=== PATIENT | male | born 1950 | race Caucasian/White ===

== ENCOUNTER 2019-11-12 11:17 | Emergency (ER) | payer OTHER, MEDICARE, SELFPAY ==
[2019-11-12 11:24] VITALS: BP 139/69; PULSE 66; RESP 16; TEMP 36.5; O2SAT 98; BMI 27.8
[2019-11-12 11:29] VITALS: PULSE 65; O2SAT 96
[2019-11-12 11:30] VITALS: BP 128/69; PULSE 69; O2SAT 96
--- NOTE | 2019-11-12 11:34 | DI.RAD.S_ITS ---
PROCEDURE: XR RIBS LT MIN 3V W CXR1V INDICATIONS: fall pain TECHNIQUE: 2 views of the left ribs were acquired, along with a single view chest. COMPARISON: None. FINDINGS: Surgical changes and devices: None. Bones and chest wall: No fractures or dislocations. No suspicious bony lesions. Overlying soft tissues appear unremarkable. Lungs and pleura: No pleural effusions or pneumothorax. Lungs appear clear. Mediastinum: Mediastinal contours appear normal. Heart size is normal. IMPRESSION: Normal for age, source of current pain after trauma symptoms is not seen. Dictated by: Bandar Zuniga M.D. on 11/12/2019 at 12:13 Approved by: Bandar Zuniga M.D. on 11/12/2019 at 12:14
[2019-11-12 11:44] LABS: Add Manual Diff / Slide Review NO; Basophils Absolute Auto 100 /uL (0-100); Eosinophils Absolute Auto 200 /uL (0-450); Eosinophils Percent Auto 2.4 % (2-4); Hematocrit 40.1 % (41-53); Hemoglobin 13.7 g/dL (13.5-17.5); Lymphocytes Absolute Auto 2100 /uL (1100-4500); Lymphocytes Percent Auto 23.8 % (25-40); Mean Corpuscular HGB Conc 34.1 % (30-36); Mean Corpuscular Volume 90.9 fL (80-100); Monocytes Absolute Auto 400 /uL (0-900); Monocytes Percent Auto 4.7 % (3-14); Neutrophils Absolute Auto 6100 /uL (1500-7000); Neutrophils Percent Auto 68.1 % (50-75); Platelet Count 294 X10^3/uL (150-400); Red Blood Cell Count 4.41 X10^6/uL (4.5-5.9); Red Cell Distribution Width 13.8 % (11.6-14.8)
[2019-11-12 11:54] LABS: Alanine Aminotransferase 20 IU/L (<50); Albumin 4.3 g/dL (3.5-5.0); Albumin Globulin Ratio 1.5 (1.0-2.8); Alkaline Phosphatase 102 U/L (38-126); Aspartate Aminotransferase 24 IU/L (17-59); BUN Creatinine Ratio 19.2 (6-22); Bilirubin Total 0.8 mg/dL (0.2-1.3); Blood Urea Nitrogen 15 mg/dL (9-20); Calcium 9.4 mg/dL (8.4-10.2); Carbon Dioxide 23 mmol/L (22-32); Chloride 104 mmol/L (98-107); Creatine Kinase 95 U/L (55-170); Estimated Glomerular Filt Rate > 60.0 mL/min (>60); Globulin 2.9 g/dL (1.7-4.1); Glucose 163 mg/dL (80-110); HEMOLYSIS < 15 (0-50); Lipase 48 U/L (23-300); Potassium 4.4 mmol/L (3.4-5.1); Sodium 136 mmol/L (137-145); Total Protein 7.2 g/dL (6.3-8.2)
[2019-11-12 12:01] VITALS: PULSE 61; RESP 23; O2SAT 96
[2019-11-12 12:05] LABS: Troponin I < 0.012 ng/mL (0.01-0.034)
--- NOTE | 2019-11-12 12:10 | ED.CHESTPAIN ---
HPI - Chest Pain General Chief Complaint: Chest Pain Stated Complaint: Fell a week ago on chest Time Seen by Provider: 11/12/19 11:21 Source: patient Mode of arrival: Ambulatory Limitations: no limitations History of Present Illness HPI narrative: A 69-YEAR-OLD MALE WHO PRESENTS WITH LEFT-SIDED CHEST PAIN. He has a history of coronary artery disease however he tripped and fell on at [facility] last week. The left side of his chest hurts every time he breathes moves twist or presses on it. He says however this does feel little bit like his previous heart attack. He had an what sounds like and an STEMI in 2018 he denies having any stent and says they just monitored him in the hospital. He is more concerned because he feels like his ribs are not improving. He denies any dizziness or lightheadedness before he fell. He says he just tripped P complaint: chest pain Onset (ago): week(s) (1) Exacerbating factors: palpation and movement Related Data Home Medications Medication Instructions Recorded Confirmed HOMEOPATHIC SUBSTANCE (MILK 1 cap PO QDAY #0 04/13/11 THISTLE) folic acid 1 tabs PO QDAY #0 04/13/11 ibuprofen 800 mg PO Q8HP #0 04/13/11 lorazepam [Ativan] 1 mg PO Q8HP #0 04/13/11 albuterol sulfate [Proventil HFA] 1 puff INH PRN #0 08/14/11 telmisartan [Micardis] 40 mg PO QDAY #0 08/14/11 Allergies Allergy/AdvReac Type Severity Reaction Status Date / Time No Known Drug Allergies Allergy Verified 11/12/19 11:24 Review of Systems Review of Systems Narrative: GENERAL: Denies chills, fatigue, malaise, fever, sweats, travel HEENT: Denies sinus pain, ear pain, sore throat, difficulty swallowing, neck pain RESPIRATORY: Denies dyspnea, cough, wheezing, hemoptysis, sputum. CARDIOVASCULAR: See HPI GASTROINTESTINAL: Denies nausea, vomiting, abdominal pain, diarrhea, constipation, melena. : Denies dysuria, frequency, incontinence, hematuria, urinary retention, flank pain. MUSCULOSKELETAL: Denies weakness, joint pain, or bony pain SKIN: No rash, no erythema, no pruritus NEUROLOGIC: Denies weakness, dizziness, headache, numbness, change in speech, confusion PSYCHIATRIC: No concerning psychosocial issues. 12 point review of systems is negative except for those stated above and HPI Exam Initial Vital Signs Initial Vital Signs: Vital Signs Temperature 97.7 F 11/12/19 11:24 Pulse Rate 66 11/12/19 11:24 Respiratory Rate 16 11/12/19 11:24 Blood Pressure 139/69 11/12/19 11:24 Pulse Oximetry 98 11/12/19 11:24 GENERAL: Alert pleasant male and in no acute distress. HEENT: Head atraumatic,EOMI, pupils reactive, face symmetric, moist mucous membranes CARDIOVASCULAR: Regular rate and rhythm without murmurs, rubs or gallops. RESPIRATORY: Breath sounds equal bilaterally, no wheezes rales or rhonchi. Tender to touch left anterior ribs no contusion erythema no paradoxical movement ABDOMEN: Soft, nontender. Normoactive bowel sounds all 4 quadrants. No guarding or rebound. EXTREMITIES: Normal range of motion, no clubbing or edema. Neurovascularly intact NEUROLOGICAL: Alert and oriented x4.Normal gait and speech. Cranial nerves II through XII grossly intact. SKIN: Warm, dry, no laceration, no petechiae, no rashes or lesions. Course Orders Ordered: ED Orders 11/12/19 11:23 EKG-12 Lead Stat 11/12/19 11:34 XR ribs LT min 3V w CXR1V Stat 11/12/19 11:38 Complete Blood Count AUTO DIFF Stat Comprehensive Metabolic Panel Stat Lipase Stat Troponin & CK Cardiac Panel Stat Vital Signs Vital signs: Vital Signs - 8 hr 11/12/19 11:24 11/12/19 11:29 11/12/19 11:30 Temperature 97.7 F Pulse Rate 66 65 69 Respiratory Rate 16 Blood Pressure 139/69 128/69 Pulse Oximetry 98 96 96 11/12/19 12:01 11/12/19 12:30 11/12/19 12:37 Temperature Pulse Rate 61 66 Respiratory Rate 23 18 Blood Pressure 116/65 Pulse Oximetry 96 97 MDM - Chest Pain Lab Data Attestation: I reviewed the patient's lab results. Result diagrams: 11/12/19 11:38 11/12/19 11:38 Labs: Lab Results 11/12/19 11/12/19 Range/Units 11:38 11:38 WBC 9.0 (4.5-11.0) X10^3/uL RBC 4.41 L (4.5-5.9) X10^6/uL Hgb 13.7 (13.5-17.5) g/dL Hct 40.1 L (41-53) % MCV 90.9 (80-100) fL MCH 31.0 (26-34) PG MCHC 34.1 (30-36) % RDW 13.8 (11.6-14.8) % Plt Count 294 (150-400) X10^3/uL Neut % (Auto) 68.1 (50-75) % Lymph % (Auto) 23.8 L (25-40) % Garfield % (Auto) 4.7 (3-14) % Eos % (Auto) 2.4 (2-4) % Baso % (Auto) 1.0 (0-2) % Neut # (Auto) 6100 (0755-4367) /uL Lymph # (Auto) 2100 (1074-9059) /uL Garfield # (Auto) 400 (0-900) /uL Eos # (Auto) 200 (0-450) /uL Baso # (Auto) 100 (0-100) /uL Sodium 136 L (137-145) mmol/L Potassium 4.4 (3.4-5.1) mmol/L Chloride 104 (98-107) mmol/L Carbon Dioxide 23 (22-32) mmol/L BUN 15 (9-20) mg/dL Creatinine 0.78 (0.66-1.25) mg/dL Estimated GFR > 60.0 (>60) mL/min BUN/Creatinine Ratio 19.2 (6-22) Glucose 163 H (80-110) mg/dL Calcium 9.4 (8.4-10.2) mg/dL Total Bilirubin 0.8 (0.2-1.3) mg/dL AST 24 (17-59) IU/L ALT 20 (<50) IU/L Alkaline Phosphatase 102 (38-126) U/L Total Creatine Kinase 95 (55-170) U/L CK-MB (CK-2) TNP CK-MB (CK-2) Rel Index TNP Troponin I < 0.012 (0.01-0.034) ng/mL Total Protein 7.2 (6.3-8.2) g/dL Albumin 4.3 (3.5-5.0) g/dL Globulin 2.9 (1.7-4.1) g/dL Albumin/Globulin Ratio 1.5 (1.0-2.8) Lipase 48 (23-300) U/L Imaging Data Chest x-ray: Radiologist's Impression: PROCEDURE: XR RIBS LT MIN 3V W CXR1V INDICATIONS: fall pain TECHNIQUE: 2 views of the left ribs were acquired, along with a single view chest. COMPARISON: None. FINDINGS: Surgical changes and devices: None. Bones and chest wall: No fractures or dislocations. No suspicious bony lesions. Overlying soft tissues appear unremarkable. Lungs and pleura: No pleural effusions or pneumothorax. Lungs appear clear. Mediastinum: Mediastinal contours appear normal. Heart size is normal. IMPRESSION: Normal for age, source of current pain after trauma symptoms is not seen. Dictated by: Bandar Zuniga M.D. on 11/12/2019 at 12:13 ECG Data Attestation: I personally reviewed and interpreted this ECG as follows: Interpretation: Normal sinus rhythm rate 65 p.r. interval 168 QRS [address] changes no Q-waves T-wave inversion noted in lead 3 actually similar to prior EKG in 2012 MDM Narrative Medical decision making narrative: Patient's blood work is overall reassuring. X-ray does not show any fractured ribs however I suspect that he likely has a rib contusion is or slight fracture that is not seen. At this time recommend pain control only. The patient is offered stronger pain medication decide Tylenol however he declines at this time. Discharge Plan Departure Patient Disposition: Home Clinical Impression: Contusion of rib on left side Qualifiers: Encounter type: initial encounter Qualified Code(s): S20.212A - Contusion of left front wall of thorax, initial encounter Discharge Date/Time: 11/12/19 12:46 Instructions: DI for Rib Contusion Activity Restrictions/Additional Instructions: *You have been diagnosed with rib contusion *What to do: No broken bone or fractures identified on her x-ray. However he likely have a bruise. This should start to get better in the next week. *Continue to take medications as directed Tylenol 650 mg every 4-6 hours if needed for elmt-ga-hbgshbii pain *Follow up with your primary care provider in 2-3 days *Return to ER if you should have increasing chest pain shortness of breath or any new, worsening or concerning symptoms Prescriptions: No Action folic acid 0.8 MG tablet 1 tabs PO QDAY Qty: 0 RF: 0 ibuprofen 800 MG tablet 800 mg PO Q8HP Qty: 0 RF: 0 HOMEOPATHIC SUBSTANCE (MILK THISTLE) 1 cap PO QDAY Qty: 0 RF: 0 lorazepam [Ativan] 1 MG tablet 1 mg PO Q8HP Qty: 0 RF: 0 telmisartan [Micardis] 40 MG tablet 40 mg PO QDAY Qty: 0 RF: 0 albuterol sulfate [Proventil HFA] 90 MCG/PUFF HFA aerosol inhaler 1 puff INH PRN Qty: 0 RF: 0
[2019-11-12 12:30] VITALS: PULSE 66; RESP 18; O2SAT 97
[2019-11-12 12:37] VITALS: BP 116/65
== END 2019-11-12 12:46 | disposition home or self-care (01) ==
PROVIDERS: Emergency Provider Emergency Medicine
DX: S20.212A Contusion of left front wall of thorax, initial encounter (principal); R07.9 Chest pain, unspecified; W19.XXXA Unspecified fall, initial encounter
CPT/HCPCS: 36415; 71101; 80053; 82550; 83690; 84484; 85025; 93005; 99284

== ENCOUNTER 2021-09-17 10:11 | Emergency (ER) | payer OTHER, SELFPAY ==
[2021-09-17 10:44] VITALS: BP 144/82; PULSE 74; RESP 18; TEMP 36.4; O2SAT 93; O2SAT 94; BMI 29.2
[2021-09-17 11:00] VITALS: BP 130/77; PULSE 68; O2SAT 94
--- NOTE | 2021-09-17 11:03 | ED.SKABFB ---
HPI - Skin/Abscess/Foreign Bdy General Chief complaint: Skin/Abscess/Foreign Body Stated complaint: Infection in toe Time Seen by Provider: 09/17/21 11:01 Source: patient Mode of arrival: Family Vehicle Limitations: no limitations History of Present Illness HPI narrative: Patient is a 71-year-old male. Does have a history of neuropathy. He states that this is not new. He was told that he had neuropathy because of his drinking. He has not drank in 3 years. He is here for evaluation of a red 2nd toe when his right foot. States he recently did hit his toe however the redness just started. He is minimal discomfort but this is most likely because of his neuropathy. He is going out of town for 10 days and wanted it evaluated prior to this. Related Data Home Medications Medication Instructions Recorded Confirmed HOMEOPATHIC SUBSTANCE (MILK 1 cap PO QDAY ##0 04/13/11 THISTLE) folic acid 800 mcg tablet 1 tabs PO QDAY ##0 04/13/11 ibuprofen 800 mg tablet 800 mg PO Q8HP ##0 04/13/11 lorazepam 1 mg tablet (Ativan) 1 mg PO Q8HP ##0 04/13/11 albuterol sulfate 90 mcg/actuation 1 puff INH PRN ##0 08/14/11 aerosol inhaler (Proventil HFA) telmisartan 40 mg tablet (Micardis) 40 mg PO QDAY ##0 08/14/11 Allergies Allergy/AdvReac Type Severity Reaction Status Date / Time No Known Drug Allergies Allergy Verified 09/17/21 10:42 Review of Systems Constitutional Constitutional: Denies fever(s) Musculoskeletal Musculoskeletal: Reports system reviewed and no additional complaints, except as documented Integumentary/Breasts Skin/Breast: Reports system reviewed and no additional complaints, except as documented Patient History Medical History Neuropathy Social History Smoking Status: Former smoker Smoking Status: Former smoker tobacco type: cigarettes alcohol intake frequency: 0-2 drinks per day Substance Use Type: does not use Exam Initial Vital Signs Initial Vital Signs: Vital Signs Temperature 97.5 F L 09/17/21 10:44 Pulse Rate 74 09/17/21 10:44 Respiratory Rate 18 09/17/21 10:44 Blood Pressure 144/82 H 09/17/21 10:44 Pulse Oximetry 94 09/17/21 10:44 Oxygen Delivery Method 09/17/21 10:44 Cardio Pulses: dorsalis pedis present on the right Skin Other: 2nd toe is red from the base of the nail up to the PIP joint. There is no fluctuance. Patient does have thick toenails on both of his feet. Consistent with fungal infections. The toenail on the 2nd toe where the redness is located on the lateral aspect does appear to be ingrowing. Extrem Other: Except for toenails bilateral feet are unremarkable. Course Vital Signs Vital signs: Vital Signs - 8 hr 09/17/21 10:44 Temperature 97.5 F L Pulse Rate 74 Respiratory Rate 18 Blood Pressure 144/82 H Pulse Oximetry 94 Oxygen Delivery Method Room Air MDM - Skin/Abscess/Foreign Bdy MDM Narrative Medical decision making narrative: Patient had minimal discomfort. His toenails were trimmed. The toenail on the 2nd toe was completely removed and was consistent with a ingrowing toenail. I suspect that the redness will improve now that this has been removed. He was informed that he needs to keep a close eye on this because of his neuropathy. He was given return precautions. He expressed understanding and agreement. Discharge Plan Departure Patient Disposition: Home Clinical Impression: Ingrowing toenail of right foot Instructions: DI for Ingrown Toenail Removal Activity Restrictions/Additional Instructions: The redness on the 2nd toe should improve now that the toenail has been removed. You do need to keep an eye on this because of your neuropathy and if symptoms worsen you do need to be re-evaluated. You would benefit from seeing a flight paramedic. Return to the emergency department for any new or worsening symptoms. Prescriptions: No Action folic acid 0.8 MG tablet 1 tabs PO QDAY Qty: 0 ibuprofen 800 MG tablet 800 mg PO Q8HP Qty: 0 HOMEOPATHIC SUBSTANCE (MILK THISTLE) 1 cap PO QDAY Qty: 0 lorazepam [Ativan] 1 MG tablet 1 mg PO Q8HP Qty: 0 telmisartan [Micardis] 40 MG tablet 40 mg PO QDAY Qty: 0 albuterol sulfate [Proventil HFA] 90 MCG/PUFF HFA aerosol inhaler 1 puff INH PRN Qty: 0
--- NOTE | 2021-09-17 11:19 | PC.NURSE ---
Non-Adhering gauze, gauze, and tape applied to toe. Education provided for care. Pt verbalizes understanding.
== END 2021-09-17 11:20 | disposition home or self-care (01) ==
PROVIDERS: Emergency Provider Emergency Medicine
DX: L60.0 Ingrowing nail (principal)
CPT/HCPCS: 99281

== ENCOUNTER → 2021-10-09 08:52 | Outpatient (CLI) | payer OTHER, SELFPAY ==
--- NOTE | 2021-10-09 | DI.RAD.S_ITS ---
PROCEDURE: FL BARIUM SWALLOW W SPEECH INDICATIONS: DYSPHAGIA COMPARISON: None. TECHNIQUE: Examination was conducted in conjunction with speech pathology per standard protocol. In the lateral projection, filming was performed of the patient swallowing. AP projection filming may also be performed with patient swallowing. COMPARISON: FINDINGS: Function: The oral preparatory phase appears normal, with proper containment. The subsequent oral propulsive phase and esophageal phase of swallowing also appear normal with all proffered substances. Flash laryngeal penetration observed with thin barium. No laryngotracheal aspiration. Intermittent absence of epiglottic inversion demonstrated. Mild vallecular residue. Morphology: No cricopharyngeal bar is identified. No cervical esophageal webs. No Zenker's diverticulum. No strictures. IMPRESSION: 1. No tracheal aspiration visualized. 2. Please see the speech pathologist report for additional details. Dictated by: Matthew Monterroso M.D. on 10/09/2021 at 10:33 Approved by: Matthew Monterroso M.D. on 10/09/2021 at 10:38
--- NOTE | 2021-10-09 17:27 | ST.SWALLOW ---
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 Eleazar Ahumada Reason for Referral Dysphagia Setting Setting Outpatient Care Patient Information Identification Type Name,ID Card Patient History The pt is a 71-yr-old male with primary complaint of a chronic cough present for 3-4 yrs. He also reported occasional coughing with oral intake with both solids and liquids. No difficulty swallowing 2 pills at a time. The pt has undergone upper endoscopy and laryngoscopy with no significant findings. The pt has poor fitting upper dentures that interfere with his ability to masticate advanced textures. He is working with a denturist for better fitting. He avoids these advanced textures or must cut them into very small pieces in order to chew. There are no other foods/liquids that he avoids d/t dysphagia symptoms. The pt is being followed by a Neurologist every 6 mos d/t some concern of possible Parkinson's disease. PMHx is significant for alcoholism with frequent falls , the last of which occurred in 2019 during which the pt broke his hip and hit his head . He was hospitalized for more than a month. During hospitalization, he was on a ventilator for ~1 mo, per pt report, and underwent hip surgery requiring placement of pins. He reported, I had to learn to walk and talk again and continues currently with PT. He reported increased memory difficulty, particularly finding words, since the fall. This concerns him because his father from complications of Alzheimer's disease. The pt has had no alcohol since that 2019 fall. 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 He has a very distant history of smoking (1981), quitting after he developed asthma. Subjective Observations The pt arrived on time, ambulating with cane. Case history was collected and MBS procedure explained to the pt. The pt reported having a hyperactive gag reflex and was provided an emesis bag. He was agreeable to proceeding. Throughout the study, the pt exhibited moderately halting speech, though he was 100% intelligible, and expressive and receptive language skills were WNL for the demands of the study. Patient Positioning Position View Lat-A/P Imaging Lateral View Textures Administered Trials Presented Thin Liquid via Spoon,Thin Liquid via Cup,Bastian Liquid via Spoon,Bastian Liquid via Cup,Honey Liquid via Spoon, Dysphagia Blenderized Textures ,Regular Textures Oral Phase Source: MBSIMP (TM) (C) Bolus Specific Scoring Grid Lip Closure No Impairment (WNL) Tongue Control During Bolus Hold Mild Impairment Bolus Prep/Mastication Mild Impairment Bolus Transport/Lingual Motion Mild Impairment A/P Lingual Propulsion Delay Yes: Lingual rocking with thick barium paste. Otherwise WNL Oral Residue Mild Impairment Residue Clearing WFL Nasal Regurgitation No Additional Oral Phase Observations Oral Peripheral Exam: Features are symmetrical. Generalized weakness and reduced tone of facial musculature was observed both at rest and during oral motor movements. Pt exhibited mildly reduced buccal coordination and anterior escape of air when shifting air laterally between cheeks. Lingual protrusion was limited in ROM. No tremor or lingual fasciculations were observed. Upper dentures were secure during OPE and oral trials but did displace when the pt experienced gagging at the end of the study. Lower dentition consists of natural molars bilaterally with a bridge between. This appears to be secure. Oral Prep and Swallow Phases: Adequate bolus control during liquid hold and swallows of liquids. Moderate lingual rocking and oral residue was observed with barium paste and paste on cookie, requiring several attempts to initiate the swallow and multiple swallows to clear oral residue . Following the study, ~5 min after trials had been completed, the pt exhibited gagging and dry heave x1, reportedly from hyperactive gag reflex. Suspect gag reflex may have influenced swallow initiation of trials including barium paste. Mastication of cookie primarily consisted of anterior munching, likely secondary to ill-fitting denture. Pharyngeal Phase Source: MBSIMP (TM) (C) Bolus Specific Scoring Grid Delayed Initiation of Pharyngeal Swallow Yes: To vallecula in all trials but one, to posterior epiglottis Soft Palate Elevation No Impairment (WNL) Tongue Base Strength/Range of Motion Mild Impairment Residue Along the Tongue Base Yes: Trace to mild Clearance of Residue Along Tongue Base WFL Laryngeal Elevation WFL Anterior Hyoid Movement Mild Impairment Epiglottic Range of Motion Mild Impairment Vallecular Residue Yes Clearance of Vallecular Residue Moderate Impairment Laryngeal Vestibular Closure Minimal Impairment Pharyngeal Stripping Wave Moderate Impairment Pharyngeal Contraction No Impairment (WNL) Posterior Pharyngeal Wall Residue No Upper Esophageal Sphincter Opening Mild Impairment Residue in the Pyriform Sinuses Yes: Trace Clearance of Residue in the Pyriform No Impairment (WNL) Sinuses Esophageal Clearance Upright Position No Impairment (WNL) Pharyngoesophageal Backflow Observed No Additional Pharyngeal Phase Observations Swallow trigger was consistently delayed to the level of the vallecula, with one episode of delay to the posterior of the epiglottis. Flash mild penetration of the laryngeal vestibule (PAS 2) was noted x2 with thin liquids . No aspiration was observed. Epiglottic inversion was inconsistent with full inversion during swallows of contrast substance but frequent incomplete inversion during dry swallows to clear residue. During the latter, the epiglottis made contact with the pharyngeal wall. This inconsistency, in addition to moderately reduced tongue base strength and pharyngeal constriction, contributed to vallecular residue with all trials, which did not fully clear with subsequent dry swallows. The extent and duration of UES opening was mildly reduced but did not contribute to pharyngeal residue; little to no residue was noted in the pyriform sinuses. A/P View Textures Administered Trials Presented Bastian Liquid via Spoon, Dysphagia Blenderized Textures ,Barium Tablet A/P View Observations Pharyngeal Contraction No Impairment (WNL) Esophageal Function No Impairment (WNL) Esophageal Clearance Upright Position No Impairment (WNL) Additional Observations Liquid and paste trials passed to the stomach without delay. Barium tablet required two liquid swallows to clear the esophagus. Clinical Impressions Dysphagia Type Mild Oropharyngeal Dysphagia Findings The pt presents with mild oropharyngeal dysphagia. Oral dysphagia is secondary to mildly reduced lingual and buccal strength and contributed by hyperactive gag reflex and poor fitting dentures. Trials of barium paste posed the greatest challenge and required multiple attempts at a/p transport, likely due to the very thick texture and possible gag reflex. Pharyngeal dysphagia is also secondary to muscular weakness resulting in inconsistent epiglottic inversion particularly with minimal bolus bulk, occasional incomplete closure of the laryngeal vestibule resulting in flash penetration of thin liquids, and reduced pharygeal stripping wave. Consistent vallecular residue was observed, and swallow trigger was also consistently delayed to the level of the vallecula. No coughing was elicited throughout the study. One episode of dry heave following completion of the study occurred, which the pt attributed to a hyperactive gag reflex. No obvious cause of the pt's chronic cough was determined. Question if extended time on a ventilator during the 2019 hospital stay may be a contributor, as this appears to be consistent timing with the onset of his cough. Outpatient speech therapy is recommended to address oropharyngeal dysphagia, provide education and training in cough alternatives that may reduce a cough that may be habituated, and evaluate the pt's expressive and cognitive communication skills secondary to past head injury with treatment as indicated. The pt was provided these recommendations and expressed agreement. Rehabilitation Potential Good Patient Appropriate for Therapy Yes Recommendations Diet Liquids Order Thin Diet Order Mechanical Soft Medication Recommendation As Tolerated Aspiration Precautions Recommended Precautions Upright at 90 Degrees,Small Bites/Sips,Effortful Swallow, Double Swallow Additional Precautions Minimize distractions Treatment Plan Therapy Recommendations Outpatient Speech Therapy Compensatory Strategies Recommendations Sitting Upright (90 deg), Double Swallow,Small Bites and Sips Short Term Goals 1. The pt will perform exercises to increase strength of swallow musculature to improve swallow efficiency and safety. Tool Machine Setup Operator Goals 1. The pt will tolerate least restrictive diet to meet his nutrition and hydration needs. Additional Recommendations/Comments Outpatient Speech Therapy for evaluation of expressive & cognitive communication skills.
== END ==
DX: R13.10 Dysphagia, unspecified (principal)
CPT/HCPCS: 74230; 92611

== ENCOUNTER 2021-11-28 09:30 | Outpatient (RCR) | payer OTHER, SELFPAY ==
--- NOTE | 2021-11-07 13:18 | ST.OPIE ---
Visit Care Team Role Provider Type Pavan Cid PA-C Attending Provider Non-Staff Family Provider Primary Care Provider Referring Provider Specialty: Medical Address: [address] [place] [address], [place], [address] Email: Speech-Language Pathology Initial Evaluation SLAT TWISTER Adult Cognitive Linguistic Eval Start: 11/07/21 12:51 Freq: Status: Active Protocol: Document 11/07/21 12:52 JAYLON (Rec: 11/07/21 13:18 ZS [id number]) Adult Cognitive Linguistic Evaluation Session Time Visit Start Time 11:15 Visit Stop Time 12:00 Total Visit Minutes 45 Visit Information Visit Number Initial Evaluation Plan of Care Dates 11/07/21 - 02/14/22 Insurance Information [facility] Referral Referring Provider Dr. Cid Reason for Referral Speech concerns Setting Assessment Location Outpatient Care Visit Type Note Type Initial evaluation Next Note Type Next Note Type Treatment Note Patient Information Identification Type Name Patient History Per history obtained at Modified Barium Swallow Study on 10/09/21: The pt is a 71-yr -old male with primary complaint of a chronic cough present for 3-4 years. He also reported occasional coughing with oral intake with both solids and liquids. No difficulty swallowing 2 pills at a time. The pt has undergone upper endoscopy and laryngoscopy with no significant findings. The pt has poor fitting upper dentures that interfere with his ability to masticate advanced textures. He is working with a denturist for better fitting. He avoids these advanced textures or must cut them into very small pieces in order to chew. there are no other foods/liquids that he avoids d/t dysphagia symptoms. The pt is being followed by a neurologist every 6 months d/t some concern of possible Parkinson' s disease/ PMHx is significant for alcoholism with frequent falls, the last of which occurred in 2019 during which the pt broke his hip and hit his head. He was hospitalized for more than a month. During hospitalization, he was on a ventilator for ~1 month, per pt report, and underwent hip surgery requiring placement of pins. He reported I had to learn to walk and talk again and continues currently with PT. He reported increased memory difficulty, particularly finding words, since the fall. This concerns him because his father from complications of Alzheimer's disease. The pt has had no alcohol since that 2019 fall. 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 He has a very distant history of smoking (1981), quitting after he developed asthma. Language(s) Spoken in the Home Czech Previous Therapy History of Therapy Current PT for back and hip. Previous speech therapy for about 2 months following fall in 2019. Subjective Patient Report Today, pt reported no concerns with memory or cognitive skills, stating the only thing he has difficulty remembering is words that he is trying to say. He stated the word finding difficulties have worsened over the past year. Pt has a neurology appointment next month and stated he will talk to neurologist about worsening symptoms and concerns for dementia. Pt stated he has new upper dentures, but it is still difficult to chew meat. He stated he has had the new dentures for about 1 week and continues to cut meats and other [id number] foods into small bites. Pt added he had a small heart attack in 2018, about 1 year prior to the major fall in 2019. Pt stated he received speech therapy services during his hospitalization, while he was in an inpatient rehab facility , and through home health for about 2 months following 2019 fall. Pt reported word finding difficulties were present and targeted with this therapy and they have worsened since discharge. Pt indicated concern for stuttering on intake form and stated he has had a lifelong stutter. This SLAT TWISTER observed prolongations and repetitions with no secondary behaviors. Pt stated he currently uses pointing, describing, and thinking of properties to help when he is having difficulty coming up with words. Mental Status Alert,Responsive,Cooperative Assessment Oral Motor Examination Completed No Findings/Results Findings Pt identified 6/6 objects given a picture representation , though presented with halted speech, likely due to word finding difficulties and stuttering. Pt exhibited prolongations and part-word repetitions with no secondary behaviors and reported stuttering has been lifelong. Discussed strategies for word finding, which pt reported he remembers from previous speech therapy provider. Pt stated he currently points to objects , describe objects, and think of properties to minimize word finding difficulties. Discussed use of synonyms and additional strategy to try. As pt has used several of these strategies in the past, therapy is recommended to reinforce current strategies, add additional strategies, and practice use of strategies to strengthen communication skills for the purposes of communicating wants and needs, especially in emergency situations. Plan of Care Speech-Language Treatment Yes Frequency 1x per week Duration 45 minutes Patient/Caregiver Education Described results of evaluation,Patient expressed understanding of evaluation, Patient expressed agreement with goals and treatment plans ,Patient expressed understanding of safety precautions,Patient expressed understanding of feeding recommendations,Patient requires further education/ training Short Term Goals 1. The pt will perform exercises to increase strength of swallow musculature to improve swallow efficiency and safety. 2. The pt will identify 1-3 synonyms for a given word independently during a structured activity. 3. The pt will independently utilize 1-2 strategies when experiencing word finding difficulty during conversation . Senior Living Goals 1. The pt will independently utilize strategies (e.g., using synonyms, describing objects, thinking of properties, etc.) to reduce impact of word finding difficulties on communication. 2. The pt will tolerate least restrictive diet to meet his nutrition and hydration needs.
--- NOTE | 2021-11-07 13:18 | ST.OPPOC ---
Physical, Occupational & Speech Therapy At [facility] Visit Care Team Role Provider Type Pavan Cid PA-C Attending Provider Non-Staff Family Provider Primary Care Provider Referring Provider Address: [address] [place] [address], [id number] Speech Pathology Plan of Care Plan of Care Dates 11/07/21 - 02/14/[address] Cid Patient History Per history obtained at Modified Barium Swallow Study on 10/09/21: The pt is a 71-yr-old male with primary complaint of a chronic cough present for 3-4 years. He also reported occasional coughing with oral intake with both solids and liquids. No difficulty swallowing 2 pills at a time. The pt has undergone upper endoscopy and laryngoscopy with no significant findings. The pt has poor fitting upper dentures that interfere with his ability to masticate advanced textures. He is working with a denturist for better fitting. He avoids these advanced textures or must cut them into very small pieces in order to chew. there are no other foods/liquids that he avoids d/t dysphagia symptoms. The pt is being followed by a neurologist every 6 months d/t some concern of possible Parkinson's disease/ PMHx is significant for alcoholism with frequent falls, the last of which occurred in 2019 during which the pt broke his hip and hit his head. He was hospitalized for more than a month. During hospitalization, he was on a ventilator for ~1 month, per pt report, and underwent hip surgery requiring placement of pins. He reported I had to learn to walk and talk again and continues currently with PT. He reported increased memory difficulty, particularly finding words, since the fall. This concerns him because his father from complications of Alzheimer's disease. The pt has had no alcohol since that 2019 fall. 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 He has a very distant history of smoking (1981), quitting after he developed asthma. Short Term Goals 1. The pt will perform exercises to increase strength of swallow musculature to improve swallow efficiency and safety. 2. The pt will identify 1-3 synonyms for a given word independently during a structured activity . 3. The pt will independently utilize 1-2 strategies when experiencing word finding difficulty during conversation. Nursing Home Goals 1. The pt will independently utilize strategies (e.g., using synonyms, describing objects, thinking of properties, etc.) to reduce impact of word finding difficulties on communication. 2. The pt will tolerate least restrictive diet to meet his nutrition and hydration needs. Comment: Electronically Signed by: LORRAINE Montaño 11/07/21 [id number] If you are in agreement with this Plan of Care, please return a signed and dated copy. I have reviewed this Plan of Care and certify that the skilled therapy services above are required to meet the patient?s needs. Physician Signature Date Printed Name and Credentials Clinical Instructor Signature Printed Name and Credentials
--- NOTE | 2021-11-17 15:21 | ST.OPTN ---
Visit Care Team Role Provider Type Pavan Cid PA-C Attending Provider Non-Staff Family Provider Primary Care Provider Referring Provider Address: [address] [place] [address], [place], [address] SAW MAKER Treatment Note SAW MAKER Treatment Note Start: 11/17/21 15:12 Freq: Status: Active Protocol: Document 11/17/21 15:12 ZS (Rec: 11/17/21 15:21 ZS [id number]) Speech Pathology Treatment Note Session Time Visit Start Time 14:25 Visit Stop Time 15:10 Total Visit Minutes 45 Visit Information Visit Number 1 Plan of Care Dates 11/07/21 - 02/14/22 Insurance Information [facility] Setting Treatment Setting Outpatient Care Visit Type Note Type Treatment Note Next Note Type Next Note Type Treatment Note General Information Patient History Per history obtained at Modified Barium Swallow Study on 10/09/21: The pt is a 71-yr -old male with primary complaint of a chronic cough present for 3-4 years. He also reported occasional coughing with oral intake with both solids and liquids. No difficulty swallowing 2 pills at a time. The pt has undergone upper endoscopy and laryngoscopy with no significant findings. The pt has poor fitting upper dentures that interfere with his ability to masticate advanced textures. He is working with a denturist for better fitting. He avoids these advanced textures or must cut them into very small pieces in order to chew. There are no other foods/liquids that he avoids d/t dysphagia symptoms. The pt is being followed by a neurologist every 6 months d/t some concern of possible Parkinson' s disease/ PMHx is significant for alcoholism with frequent falls, the last of which occurred in 2019 during which the pt broke his hip and hit his head. He was hospitalized for more than a month. During hospitalization, he was on a ventilator for ~1 month, per pt report, and underwent hip surgery requiring placement of pins. He reported I had to learn to walk and talk again and continues currently with PT. He reported increased memory difficulty, particularly finding words, since the fall. This concerns him because his father from complications of Alzheimer's disease. The pt has had no alcohol since that 2019 fall. 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 He has a very distant history of smoking (1981), quitting after he developed asthma. At initial evaluation, pt reported no concerns with memory or cognitive skills, stating the only thing he has difficulty remembering is words that he is trying to say . He stated the word finding difficulties have worsened over the past year. Pt has a neurology appointment next month and stated he will talk to neurologist about worsening symptoms and concerns for dementia. Pt stated he has new upper dentures, but it is still difficult to chew meat. He stated he has had the new dentures for about 1 week and continues to cut meats and other [id number] foods into small bites. Pt added he had a small heart attack in 2018, about 1 year prior to the major fall in 2019. Pt stated he received speech therapy services during his hospitalization, while he was in an inpatient rehab facility , and through home health for about 2 months following 2019 fall. Pt reported word finding difficulties were present and targeted with this therapy and they have worsened since discharge. Pt indicated concern for stuttering on intake form and stated he has had a lifelong stutter. This SAW MAKER observed prolongations and repetitions with no secondary behaviors. Pt stated he currently uses pointing, describing, and thinking of properties to help when he is having difficulty coming up with words. Subjective Identification Type Name Identification Reconciled With Medical Record Observations/Patient Presentation Fidencio arrived early and agreed to participate in all session activities. He reported continued difficulty with word finding, repeating several of the points from the initial evaluation. Fidencio also stated he had not heard about the results of the MBS completed on 10/09/21, despite going over results from this assessment at the initial evaluation on . Chief Complaint(s) Language Objective Short Term Goals 1. The pt will perform exercises to increase strength of swallow musculature to improve swallow efficiency and safety. 2. The pt will identify 1-3 synonyms for a given word independently during a structured activity. 3. The pt will independently utilize 1-2 strategies when experiencing word finding difficulty during conversation . Senior It Engineer Goals 1. The pt will independently utilize strategies (e.g., using synonyms, describing objects, thinking of properties, etc.) to reduce impact of word finding difficulties on communication. 2. The pt will tolerate least restrictive diet to meet his nutrition and hydration needs. Treatment Activities Reviewed results of MBS from . Discussed word finding strategies and progress with these so far. Practiced word finding with proverbs, similes, and identifying synonyms given a word. Discussed naming items in a category and practice describing items in daily life . Assessment Assessment of Improvement Pt did not appear to recall discussing results of MBS at previous session. Difficulty understanding activity to name items in a given category as pt continued to talk about how he uses a grocery list when he goes to the store. Pt stated he currently uses all of the strategies discussed, though added he liked the synonyms exercise. He agreed to practice identifying synonyms for a given word at home and worksheets were provided. Plan Amount of Therapy Recommended 6 Months Frequency of Treatment Once a Week Length of Session 45 Minutes Therapeutic Contents Expressive Language Training, Home Exercise Program Provided Patient/Caregiver Instruction Home Exercise Program,Plan of Care,Questions/Concerns Therapy Recommendations Continue with Current Program
--- NOTE | 2021-11-23 12:16 | ST.OPTN ---
Visit Care Team Role Provider Type Pavan Cid PA-C Attending Provider Non-Staff Family Provider Primary Care Provider Referring Provider Address: [address] [place] [address], [place], [address] SHEET METAL APPRENTICE Treatment Note SHEET METAL APPRENTICE Treatment Note Start: 11/17/21 15:12 Freq: Status: Active Protocol: Document 11/23/21 12:10 JAYLON (Rec: 11/23/21 12:16 JAYLON [id number]) Speech Pathology Treatment Note Session Time Visit Start Time 11:30 Visit Stop Time 12:10 Total Visit Minutes 40 Visit Information Visit Number 2 Plan of Care Dates 11/07/21 - 02/14/22 Insurance Information [facility] Setting Treatment Setting Outpatient Care Visit Type Note Type Treatment Note Next Note Type Next Note Type Treatment Note General Information Patient History Per history obtained at Modified Barium Swallow Study on 10/09/21: The pt is a 71-yr -old male with primary complaint of a chronic cough present for 3-4 years. He also reported occasional coughing with oral intake with both solids and liquids. No difficulty swallowing 2 pills at a time. The pt has undergone upper endoscopy and laryngoscopy with no significant findings. The pt has poor fitting upper dentures that interfere with his ability to masticate advanced textures. He is working with a denturist for better fitting. He avoids these advanced textures or must cut them into very small pieces in order to chew. There are no other foods/liquids that he avoids d/t dysphagia symptoms. The pt is being followed by a neurologist every 6 months d/t some concern of possible Parkinson' s disease/ PMHx is significant for alcoholism with frequent falls, the last of which occurred in 2019 during which the pt broke his hip and hit his head. He was hospitalized for more than a month. During hospitalization, he was on a ventilator for ~1 month, per pt report, and underwent hip surgery requiring placement of pins. He reported I had to learn to walk and talk again and continues currently with PT. He reported increased memory difficulty, particularly finding words, since the fall. This concerns him because his father from complications of Alzheimer's disease. The pt has had no alcohol since that 2019 fall. 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 He has a very distant history of smoking (1981), quitting after he developed asthma. At initial evaluation, pt reported no concerns with memory or cognitive skills, stating the only thing he has difficulty remembering is words that he is trying to say . He stated the word finding difficulties have worsened over the past year. Pt has a neurology appointment next month and stated he will talk to neurologist about worsening symptoms and concerns for dementia. Pt stated he has new upper dentures, but it is still difficult to chew meat. He stated he has had the new dentures for about 1 week and continues to cut meats and other [id number] foods into small bites. Pt added he had a small heart attack in 2018, about 1 year prior to the major fall in 2019. Pt stated he received speech therapy services during his hospitalization, while he was in an inpatient rehab facility , and through home health for about 2 months following 2019 fall. Pt reported word finding difficulties were present and targeted with this therapy and they have worsened since discharge. Pt indicated concern for stuttering on intake form and stated he has had a lifelong stutter. This SHEET METAL APPRENTICE observed prolongations and repetitions with no secondary behaviors. Pt stated he currently uses pointing, describing, and thinking of properties to help when he is having difficulty coming up with words. Subjective Identification Type Name Identification Reconciled With Medical Record Observations/Patient Presentation Fidencio arrived on time and agreed to participate in all session activities. He reported significant improvement with word finding, stating he only had one instance of word finding difficulty where he was unable to come up with the word. He reported using the first letter of a word is often the strategy he uses and it is often successful. Chief Complaint(s) Language Objective Short Term Goals 1. The pt will perform exercises to increase strength of swallow musculature to improve swallow efficiency and safety. 2. The pt will identify 1-3 synonyms for a given word independently during a structured activity. 3. The pt will independently utilize 1-2 strategies when experiencing word finding difficulty during conversation . Presetter Operator Goals 1. The pt will independently utilize strategies (e.g., using synonyms, describing objects, thinking of properties, etc.) to reduce impact of word finding difficulties on communication. 2. The pt will tolerate least restrictive diet to meet his nutrition and hydration needs. Treatment Activities Discussed word finding strategies and progress with these so far. Practiced generative naming task. Discussed POC moving forward given pt's independence with word finding and swallowing strategies at home. Assessment Patient Response to Treatment Excellent Rehab Potential Excellent Impairments Identified Expressive language,Swallow Progress Towards Goals Excellent Progress Assessment of Overall Progress Improving Assessment of Improvement Pt reported significant improvement in word finding and recalled 3 strategies provided in previous session that he is using successfully at home. Pt had no questions regarding word finding or swallowing strategies. He added swallowing is improved with the double swallow. Pt observed to name 9 items in a given category (presidents) and use strategies when he was having difficulty with generative naming. Discussed discharge from speech therapy after 1-2 more sessions given pt's independence with strategies, reduced word finding difficulties in session (0 instances of word finding difficulty observed today), and reported improvement with word finding and swallowing at home. Pt was in agreement with POC. Plan Amount of Therapy Recommended 6 Months Comment 1-2 more sessions Frequency of Treatment Once a Week Length of Session 45 Minutes Therapeutic Contents Expressive Language Training, Home Exercise Program Provided Patient/Caregiver Instruction Home Exercise Program,Plan of Care,Questions/Concerns Therapy Recommendations Continue with Current Program
--- NOTE | 2021-11-28 09:54 | ST.OPTN ---
Visit Care Team Role Provider Type Pavan Cid PA-C Attending Provider Non-Staff Family Provider Primary Care Provider Referring Provider Address: [address] [place] [address], [place], [address] CUSTOMER SERVICE ASSISTANT Treatment Note CUSTOMER SERVICE ASSISTANT Treatment Note Start: 11/17/21 15:12 Freq: Status: Active Protocol: Document 11/28/21 09:51 JAYLON (Rec: 11/28/21 09:54 ZS [id number]) Speech Pathology Treatment Note Session Time Visit Start Time 09:20 Visit Stop Time 09:50 Total Visit Minutes 30 Visit Information Visit Number 3 Plan of Care Dates 11/07/21 - 02/14/22 Insurance Information [facility] Setting Treatment Setting Outpatient Care Visit Type Note Type Treatment Note Next Note Type Next Note Type Discharge Summary General Information Patient History Per history obtained at Modified Barium Swallow Study on 10/09/21: The pt is a 71-yr -old male with primary complaint of a chronic cough present for 3-4 years. He also reported occasional coughing with oral intake with both solids and liquids. No difficulty swallowing 2 pills at a time. The pt has undergone upper endoscopy and laryngoscopy with no significant findings. The pt has poor fitting upper dentures that interfere with his ability to masticate advanced textures. He is working with a denturist for better fitting. He avoids these advanced textures or must cut them into very small pieces in order to chew. There are no other foods/liquids that he avoids d/t dysphagia symptoms. The pt is being followed by a neurologist every 6 months d/t some concern of possible Parkinson' s disease/ PMHx is significant for alcoholism with frequent falls, the last of which occurred in 2019 during which the pt broke his hip and hit his head. He was hospitalized for more than a month. During hospitalization, he was on a ventilator for ~1 month, per pt report, and underwent hip surgery requiring placement of pins. He reported I had to learn to walk and talk again and continues currently with PT. He reported increased memory difficulty, particularly finding words, since the fall. This concerns him because his father from complications of Alzheimer's disease. The pt has had no alcohol since that 2019 fall. 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 He has a very distant history of smoking (1981), quitting after he developed asthma. At initial evaluation, pt reported no concerns with memory or cognitive skills, stating the only thing he has difficulty remembering is words that he is trying to say . He stated the word finding difficulties have worsened over the past year. Pt has a neurology appointment next month and stated he will talk to neurologist about worsening symptoms and concerns for dementia. Pt stated he has new upper dentures, but it is still difficult to chew meat. He stated he has had the new dentures for about 1 week and continues to cut meats and other [id number] foods into small bites. Pt added he had a small heart attack in 2018, about 1 year prior to the major fall in 2019. Pt stated he received speech therapy services during his hospitalization, while he was in an inpatient rehab facility , and through home health for about 2 months following 2019 fall. Pt reported word finding difficulties were present and targeted with this therapy and they have worsened since discharge. Pt indicated concern for stuttering on intake form and stated he has had a lifelong stutter. This CUSTOMER SERVICE ASSISTANT observed prolongations and repetitions with no secondary behaviors. Pt stated he currently uses pointing, describing, and thinking of properties to help when he is having difficulty coming up with words. Subjective Identification Type Name Identification Reconciled With Medical Record Observations/Patient Presentation Fidencio arrived early and agreed to participate in all session activities. He reported significant improvement with word finding, stating he had a good week and did not have any difficulty with word finding this week. He reported using the first letter of a word is often the strategy he uses and it is often successful. Chief Complaint(s) Language Objective Short Term Goals 1. The pt will perform exercises to increase strength of swallow musculature to improve swallow efficiency and safety. 2. The pt will identify 1-3 synonyms for a given word independently during a structured activity. 3. The pt will independently utilize 1-2 strategies when experiencing word finding difficulty during conversation . [facility] Goals 1. The pt will independently utilize strategies (e.g., using synonyms, describing objects, thinking of properties, etc.) to reduce impact of word finding difficulties on communication. 2. The pt will tolerate least restrictive diet to meet his nutrition and hydration needs. Treatment Activities Discussed word finding strategies and progress with these so far. Practiced generative naming task. Discussed POC moving forward given pt's independence with word finding and swallowing strategies at home. Assessment Patient Response to Treatment Excellent Rehab Potential Excellent Impairments Identified Expressive language,Swallow Progress Towards Goals Excellent Progress Assessment of Overall Progress Improving Assessment of Improvement Pt reported significant improvement in word finding and recalled 3 strategies provided in previous session that he is using successfully at home. Pt had no questions regarding word finding or swallowing strategies. He added swallowing is improved with the double swallow. Pt observed to name 25 items in a given category (states) in 1 minute. No word finding difficulties observed during generative naming task or conversation. Discussed discharge from speech therapy and next session as the last session given pt's independence with strategies, reduced word finding difficulties in session (0 instances of word finding difficulty observed today), and reported improvement with word finding and swallowing at home. Pt was in agreement with POC. Plan Amount of Therapy Recommended 6 Months Comment 1-2 more sessions Frequency of Treatment Once a Week Length of Session 45 Minutes Therapeutic Contents Expressive Language Training, Home Exercise Program Provided Patient/Caregiver Instruction Home Exercise Program,Plan of Care,Questions/Concerns Therapy Recommendations Continue with Current Program
--- NOTE | 2021-12-05 09:51 | ST.OPTN ---
Visit Care Team Role Provider Type Pavan Cid PA-C Attending Provider Non-Staff Family Provider Primary Care Provider Referring Provider Address: [address] [place] [address], [place], [address] REAL ESTATE APPRAISER Treatment Note REAL ESTATE APPRAISER Treatment Note Start: 11/17/21 15:12 Freq: Status: Active Protocol: Document 12/05/21 09:48 JAYLON (Rec: 12/05/21 09:51 ZS [id number]) Speech Pathology Treatment Note Visit Information Plan of Care Dates 11/07/21 - 02/14/22 Insurance Information [facility] Setting Treatment Setting Outpatient Care Visit Type Note Type Discharge Summary General Information Patient History Per history obtained at Modified Barium Swallow Study on 10/09/21: The pt is a 71-yr -old male with primary complaint of a chronic cough present for 3-4 years. He also reported occasional coughing with oral intake with both solids and liquids. No difficulty swallowing 2 pills at a time. The pt has undergone upper endoscopy and laryngoscopy with no significant findings. The pt has poor fitting upper dentures that interfere with his ability to masticate advanced textures. He is working with a denturist for better fitting. He avoids these advanced textures or must cut them into very small pieces in order to chew. There are no other foods/liquids that he avoids d/t dysphagia symptoms. The pt is being followed by a neurologist every 6 months d/t some concern of possible Parkinson' s disease/ PMHx is significant for alcoholism with frequent falls, the last of which occurred in 2019 during which the pt broke his hip and hit his head. He was hospitalized for more than a month. During hospitalization, he was on a ventilator for ~1 month, per pt report, and underwent hip surgery requiring placement of pins. He reported I had to learn to walk and talk again and continues currently with PT. He reported increased memory difficulty, particularly finding words, since the fall. This concerns him because his father from complications of Alzheimer's disease. The pt has had no alcohol since that 2019 fall. 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 He has a very distant history of smoking (1981), quitting after he developed asthma. At initial evaluation, pt reported no concerns with memory or cognitive skills, stating the only thing he has difficulty remembering is words that he is trying to say . He stated the word finding difficulties have worsened over the past year. Pt has a neurology appointment next month and stated he will talk to neurologist about worsening symptoms and concerns for dementia. Pt stated he has new upper dentures, but it is still difficult to chew meat. He stated he has had the new dentures for about 1 week and continues to cut meats and other [id number] foods into small bites. Pt added he had a small heart attack in 2018, about 1 year prior to the major fall in 2019. Pt stated he received speech therapy services during his hospitalization, while he was in an inpatient rehab facility , and through home health for about 2 months following 2019 fall. Pt reported word finding difficulties were present and targeted with this therapy and they have worsened since discharge. Pt indicated concern for stuttering on intake form and stated he has had a lifelong stutter. This REAL ESTATE APPRAISER observed prolongations and repetitions with no secondary behaviors. Pt stated he currently uses pointing, describing, and thinking of properties to help when he is having difficulty coming up with words. Subjective Identification Type Name Identification Reconciled With Medical Record Observations/Patient Presentation Pt did not arrive for scheduled session on 12/05/2021 at 9:30. Called and left a message letting pt know he will be discharged from speech therapy as this was the last scheduled appointment and he has met all his therapy goals. Pt to call back if any new issues or questions have come up. Chief Complaint(s) Language Objective Short Term Goals 1. The pt will perform exercises to increase strength of swallow musculature to improve swallow efficiency and safety. 2. The pt will identify 1-3 synonyms for a given word independently during a structured activity. 3. The pt will independently utilize 1-2 strategies when experiencing word finding difficulty during conversation . [facility] Goals 1. The pt will independently utilize strategies (e.g., using synonyms, describing objects, thinking of properties, etc.) to reduce impact of word finding difficulties on communication. 2. The pt will tolerate least restrictive diet to meet his nutrition and hydration needs. Assessment Patient Response to Treatment Excellent Rehab Potential Excellent Impairments Identified Expressive language,Swallow Progress Towards Goals Excellent Progress Assessment of Overall Progress Improving Assessment of Improvement Pt has met all goals and reported no questions regarding strategies provided. He demonstrated independence in use of strategies during sessions and reported independence in home practice program. Pt demonstrated no word finding difficulties in previous session. Discharging from speech therapy as pt has met all goals. Plan Amount of Therapy Recommended No Further Therapy Frequency of Treatment No Further Therapy Therapeutic Contents Expressive Language Training, Home Exercise Program Provided Patient/Caregiver Instruction Home Exercise Program,Plan of Care,Questions/Concerns Therapy Recommendations Discharge from Speech Therapy Reason for Discharge Pt met all goals
== END 2021-12-05 09:53 ==
LOC: SP 09:30
PROVIDERS: Family Provider Physician Assistant; PCP Physician Assistant; Referring Provider Physician Assistant; Visit Provider Physician Assistant
DX: R13.10 Dysphagia, unspecified (principal)
CPT/HCPCS: 92507; 92523

== ENCOUNTER 2022-08-18 11:11 | Emergency (ER) | payer OTHER, SELFPAY ==
[2022-08-18 11:25] VITALS: BP 143/74; PULSE 74; RESP 18; TEMP 36.7; O2SAT 94; BMI 29.1
--- NOTE | 2022-08-18 11:30 | DI.RAD.S_ITS ---
PROCEDURE: XR FOOT LT MIN 3V INDICATIONS: Hit left foot, no feeling in foot. TECHNIQUE: 3 views of the foot were acquired. COMPARISON: None. FINDINGS: Bones: Osseous structures are demineralized. Scattered degenerative changes most pronounced at the 1st metatarsophalangeal joint. No fractures or dislocations. Likely pes planus on these nonweightbearing views. No suspicious bony lesions. Soft tissues: No tibiotalar joint effusion. Achilles tendon appears normal. Vascular calcifications noted throughout the lower leg and ankle IMPRESSION: No acute osseous abnormality. Dictated by: Sandoval Posada D.O. on 08/18/2022 at 12:03 Approved by: Sandoval Posada D.O. on 08/18/2022 at 12:05
--- NOTE | 2022-08-18 15:03 | ED_ITS ---
HPI - Extremity Injury (Lower) <WAQAS Rhodes - Last Filed: 08/18/22 15:23> General Chief Complaint: Extremity Injury, Lower Stated Complaint: LT foot big toe injury Time Seen by Provider: 08/18/22 15:03 Source: patient Mode of arrival: Ambulatory History of Present Illness HPI Narrative: 72-year-old male, with bilateral foot neuropathy, presents to the emergency department with left great toe redness after avulsing his great toenail 2 days ago. Patient states that he stubbed his toe while walking on his deck, and did not notice any pain or bleeding. Patient only realized he had tore the left great toenail off when it fell out of his sock that evening. Patient wants to make sure he does not have a infection. Related Data Home Medications Medication Instructions Recorded Confirmed HOMEOPATHIC SUBSTANCE (MILK 1 cap PO QDAY ##0 04/13/11 THISTLE) folic acid 800 mcg tablet 1 tabs PO QDAY ##0 04/13/11 ibuprofen 800 mg tablet 800 mg PO Q8HP ##0 04/13/11 lorazepam 1 mg tablet (Ativan) 1 mg PO Q8HP ##0 04/13/11 albuterol sulfate 90 mcg/actuation 1 puff INH PRN ##0 08/14/11 aerosol inhaler (Proventil HFA) telmisartan 40 mg tablet (Micardis) 40 mg PO QDAY ##0 08/14/11 Previous Rx's Medication Instructions Recorded sulfamethoxazole 400 1 tab PO BID Cellulitis 7 days #14 08/18/22 mg-trimethoprim 80 mg tablet tabs (Bactrim) Allergies Allergy/AdvReac Type Severity Reaction Status Date / Time No Known Drug Allergies Allergy Verified 08/18/22 11:25 Review of Systems <WAQAS Rhodes - Last Filed: 08/18/22 15:23> Review of Systems Narrative: Narrative: See HPI. GENERAL: Denies chills, fatigue, fever, sweats. HEENT: Denies sinus pain, ear pain, sore throat, difficulty swallowing, dizziness. RESPIRATORY: Denies dyspnea, cough, wheezing, sputum. CARDIOVASCULAR: Denies chest pain, palpitations, edema. GASTROINTESTINAL: Denies nausea, vomiting, abdominal pain, diarrhea, constipation. : Denies dysuria, frequency, incontinence, hematuria, urinary retention, flank pain. MSK: Denies weakness, joint pain, or bony pain. SKIN: Denies rash, skin lesions, or pruritis. Endorses left great toe redness and absence of toenail. NEUROLOGIC: Denies weakness, dizziness, headache, numbness, confusion. PSYCHIATRIC: No concerning psychosocial issues. Patient History <WAQAS Rhodes - Last Filed: 08/18/22 15:23> Medical History Neuropathy Social History Smoking Status: Former smoker Smoking Status: Former smoker tobacco type: cigarettes alcohol intake frequency: 0-2 drinks per day Substance Use Type: does not use Exam <WAQAS Rhodes - Last Filed: 08/18/22 15:23> Narrative Exam Narrative: Exam Narrative: GENERAL: This is a well-nourished, well-developed patient, in no acute distress. HEAD: Atraumatic. Normocephalic. EYES: Pupils equal round and reactive. Extraocular motions intact. No scleral icterus, injection or drainage. ENT: Nose without bleeding, purulent drainage. Airway patent. RESPIRATORY: Normal respiratory rate and effort. MSK: Moves all extremities. Normal range of motion, no clubbing or edema. Neurovascularly intact. NEURO: A&O x 3. Positive pedal pulses with normal cap refill. Decreased sensation bilaterally. SKIN: Warm, dry, no rashes or lesions noted. Mild redness surrounding left great toenail cuticle with dried blood. Initial Vital Signs Initial Vital Signs: Vital Signs Temperature 98.0 F 08/18/22 11:25 Pulse Rate 74 08/18/22 11:25 Respiratory Rate 18 08/18/22 11:25 Blood Pressure 143/74 H 08/18/22 11:25 Pulse Oximetry 94 08/18/22 11:25 Oxygen Delivery Method Room Air 08/18/22 11:25 Reviewed <Geetha Ramírez DO - Last Filed: 08/19/22 07:13> Initial Vital Signs Initial Vital Signs: Vital Signs Temperature 98.0 F 08/18/22 11:25 Pulse Rate 74 08/18/22 11:25 Respiratory Rate 18 08/18/22 11:25 Blood Pressure 143/74 H 08/18/22 11:25 Pulse Oximetry 94 08/18/22 11:25 Oxygen Delivery Method Room Air 08/18/22 11:25 Course <WAQAS Rhodes - Last Filed: 08/18/22 15:23> Orders Ordered: ED Orders 08/18/22 11:30 XR foot LT min 3V Stat Vital Signs Vital signs: Vital Signs - 8 hr 08/18/22 11:25 Temperature 98.0 F Pulse Rate 74 Respiratory Rate 18 Blood Pressure 143/74 H Pulse Oximetry 94 Oxygen Delivery Method Room Air <Geetha Ramírez DO - Last Filed: 08/19/22 07:13> Orders Ordered: ED Orders 08/18/22 11:30 XR foot LT min 3V Stat Vital Signs Vital signs: Vital Signs - 8 hr 08/18/22 11:25 Temperature 98.0 F Pulse Rate 74 Respiratory Rate 18 Blood Pressure 143/74 H Pulse Oximetry 94 Oxygen Delivery Method Room Air MDM - Extremity Injury (Lower) <WAQAS Rhodes - Last Filed: 08/18/22 15:23> Differential Diagnosis Differential diagnosis: Likely other (Left great toe cellulitis); Unlikely fracture of toe Imaging Data Extremity x-ray #1: Radiologist's Impression: [place] [address] XRay Report Signed Patient: Fidencio Pickard MR#: [id number] : 1950 Acct:[id number] Age/Sex: 72 / M Date of Service: 08/18/22 Loc: ED Accession Number: [id number] ?? Procedure: XR foot LT min 3V Ordering Provider: Geetha Ramírez D.O. PROCEDURE:? XR FOOT LT MIN 3V ? INDICATIONS:? Hit left foot, no feeling in foot. ? TECHNIQUE:? 3 views of the foot were acquired.? ? COMPARISON:? None. ? FINDINGS:? ? Bones:? Osseous structures are demineralized.? Scattered degenerative changes most pronounced at the 1st metatarsophalangeal joint.? No fractures or dislocations.? Likely pes planus on these nonweightbearing views.? No suspicious bony lesions.? ? Soft tissues:? No tibiotalar joint effusion.? Achilles tendon appears normal.? Vascular calcifications noted throughout the lower leg and ankle ? ? IMPRESSION:? ? No acute osseous abnormality. ? ? Dictated by: Sandoval Posada D.O. on 08/18/2022 at 12:03 ? ? Approved by: Sandoval Posada D.O. on 08/18/2022 at 12:05 ? MDM Narrative Medical decision making narrative: 72-year-old male presents to the emergency department with avulsion of left great toenail. Mild redness surrounding cuticle that could be consistent with beginnings of cellulitis. Will place patient on a course of antibiotics. Recommended warm water soaks and topical antibiotic ointment as needed. Instructed patient to follow up with family doctor as needed. Discussed ER return precautions with patient, who verbalized understanding and was agreeable with course of action. Discharge Plan Departure Patient Disposition: Home Clinical Impression: Infection of great toe Instructions: DI for Cellulitis -- Adult Activity Restrictions/Additional Instructions: *You have been diagnosed with avulsed left great toenail. Your toes red, which can be consistent with accidental avulsion of the toenail, but can also be the beginnings of a infection. We will start you on some antibiotics to see if this helps resolve the redness. You may soak your foott in warm water daily and c over the area with antibiotic ointment as needed. Please follow-up with your family doctor as needed. For any worsening symptoms, that includes chest pain, shortness of breath, intolerable pain, increased redness, swelling or yellow discharge, please return to the emergency department. *What to do: *Please continue to take your regular medications as directed. [ x] New medication prescriptions sent to your pharmacy: [[facility]] [ ] New medication written as a paper prescription [ ] No new medications given *Please follow up with your primary care provider in 2-3 days, call for an appointment. Let them know you were seen in the Emergency Department and that we ask that you be seen in follow up. We will electronically transmit a record of today's note if your PCP is in our system *If you do not have a primary care provider please contact the [facility] Resource line at [phone]. They will ask some questions about your medical history and help get you set up with a doctor in the community. ? Return to ER if you should have any new, worsening or concerning symptoms, such as worsening pain, severe headache, confusion, chest pain, difficulty breathing, fever greater than 101 F, shaking chills, persistent vomiting to the point that you cannot drink fluids, or other new or worsening symptoms. Prescriptions: New sulfamethoxazole-trimethoprim [Bactrim] 400-80 mg tablet 1 tab PO BID 7 Days Qty: 14 0RF No Action folic acid 0.8 MG tablet 1 tabs PO QDAY Qty: 0 ibuprofen 800 MG tablet 800 mg PO Q8HP Qty: 0 HOMEOPATHIC SUBSTANCE (MILK THISTLE) 1 cap PO QDAY Qty: 0 lorazepam [Ativan] 1 MG tablet 1 mg PO Q8HP Qty: 0 telmisartan [Micardis] 40 MG tablet 40 mg PO QDAY Qty: 0 albuterol sulfate [Proventil HFA] 90 MCG/PUFF HFA aerosol inhaler 1 puff INH PRN Qty: 0 Referrals: Pavan Cid PA-C [Primary Care Provider] - Stand Alone Forms: Patient Portal/API <Geetha Ramírez DO - Last Filed: 08/19/22 07:13> Cosign ED Attending Cosalejandroature Attestation: I was immediately available in the department for consultation. Documentation has been reviewed.
[2022-08-18 15:22] VITALS: BP 167/80; PULSE 80; RESP 16; O2SAT 94
== END 2022-08-18 15:26 | disposition home or self-care (01) ==
PROVIDERS: Emergency Provider Registered Nurse; Family Provider Physician Assistant; PCP Physician Assistant
DX: L03.032 Cellulitis of left toe (principal)
CPT/HCPCS: 73630; 99283

== ENCOUNTER 2022-08-29 13:15 | Outpatient (RCR) | payer OTHER, SELFPAY ==
--- NOTE | 2022-07-25 12:22 | ST.OPIE ---
Visit Care Team Role Provider Type Pavan Cid PA-C Family Provider Non-Staff Primary Care Provider Specialty: Medical Address: [address] [place] [address], [place], [address] Email: Brandyn Bush MD Attending Provider Non-Staff Referring Provider Specialty: Psychiatry Address: [facility], [place], [address] Email: Speech-Language Pathology Initial Evaluation DIFFERENTIAL REPAIRER Adult Cognitive Linguistic Eval Start: 07/25/22 08:31 Freq: Status: Active Protocol: Document 07/24/22 08:32 BE (Rec: 07/25/22 09:17 BE [id number]) Adult Cognitive Linguistic Evaluation Session Time Visit Start Time 14:15 Visit Stop Time 15:30 Total Visit Minutes 75 Visit Information Visit Number 1 Plan of Care Dates 07/24/2022-10/24/2022 Setting Assessment Location Outpatient Care Visit Type Note Type Initial evaluation Next Note Type Next Note Type Treatment Note Patient Information Identification Type Name,Date of Patient History Per chart review Pt is being followed by a neurologist every 6 months d/t some concern of possible Parkinson' s disease/ PMHx is significant for alcoholism with frequent falls, the last of which occurred in 2018 during which the pt broke his hip and hit his head. He was hospitalizaed for more than a month. During hospitalization, he was on a ventilator for ~1 month, per pt report, and underwent hip surgery requiring placement of pins. He reported I had to learn to walk and talk again and continues currently with PT. He reported increased memory difficulty, particularly finding words, since the fall. This concerns him because his father from complications of Alzheimer's disease. The pt has had no alcohol since that 2019 fall. 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 He has a very distant hisotry of smoking (1981), quitting after he developed asthma. Per pt report, pt has developmental stuttering. Pt had MBSS done in 09/2021 at , indicating mild oropharyngeal dysphagia. Occupation Status Retired Previous Therapy Previous Speech-Language Therapy Yes History of Therapy Pt seen in acute rehab in [facility]. Pt attended outpatient ST at from Subjective Patient Report At initial evaluation, pt reported concerns with word finding ability in conversation and swallowing. He reported initial improvement of word finding skills following previous ST at (ending in 11/2021), but recent and significant worsening over the past few months. Pt has a neurology appointment at on 08/07 for further neurological testing. Pt also mentioned difficulty with swallowing, including frequent coughing and choking. Per pt report, he receives botox injections every few months which help his swallow. The last injection was 1 month ago. Pt had MBSS done at on 10/09/21, which indicated mild oropharyngeal dysphagia. Pt's speech rate was slow, sometimes imprecise, and speech contained several moments of prolongations and repetitions with no secondary behaviors. Continue to monitor. Informal Assessment Receptive Language Normal Yes Expressive Language Normal No Expressive Language Impairment(s) Expression of complex thoughts /ideas Pragmatic Language Normal Yes Speech Normal No Speech Impairment(s) Slow speech rate Cognition Normal Yes Formal Assessment Standardized Test/Screener Type Cognitive Linguistic Quick Test (CLQT) Administration Complete Results Pt scored WNL in all categories. When compared to his age group, he scored slightly below average in only one subtest: Symbol Trails. Symbol Trails assesses attention, complex visual scanning, motor agility, working memory, planning, and mental flexibility. Pt was extremely cautious during this task and ran out of time before finishing it. This subtest indicated that pt would benefit from increased processing time for similarly complex tasks. Pt also completed the Squires Naming Test (full version). He scored WNL on this confrontational naming test. Pt required cueing on a small number of items, and mostly benefitted from phonemic cueing. Pt's word finding challenges are mainly limited to generative tasks, such as unstructured conversation. Will continue to assess using generative naming tasks. Findings/Results Language Function Mild-moderately impaired Cognitive Function Mild-moderately impaired Findings Though standardized assessments indicated cognitive and linguistic functioning to be WNL, pt demonstrated many moments of word finding challenges in conversation. It is unclear at this time whether word finding impairment is due to normal aging, possible hx of TBI, or neurological etiology. Recommend continuation of assessment of word finding deficits in generative tasks ( e.g., picture description, conversation). Due to pt's report of continuing swallow difficulty and previous dysphagia hx, recommend new MBSS to determine current status of swallow function. Imprecise speech sounds and slowed speech noted could be attributed to stutter or possible dysarthria. Perceptual speech characteristics could have neurological cause. Cognitive Communication Deficits Self-awareness of Cognitive- Predictive awareness (able to Communication Deficits predict problem; impact of impairments) Concomitant Factors Concomitant Factors Hearing loss Comment Pt is QUILEUTE Impact on Functioning Activity Limits/Particip.Rest. Mod: Interpersonal Interactions Community Comment Word finding challenges limits communication effectiveness Safety Risks Mild: Reacting to Emergency Traveling Alone in Community Comment Safety risk for communicating in emergency when under pressure Prognosis Prognosis Fair Based on Cognitive status,Family support,Comorbidities Comment Cause of symptoms not yet known. Continue testing Plan of Care Short Term Goals 1. Continue assessment of word retrieval using generative tasks (e.g., conversation, picture description) 2. Pt will undergo MBSS to determine current swallow status Discharge Recommendations Home
--- NOTE | 2022-08-29 14:44 | ST.OPDS ---
Visit Care Team Role Provider Type Pavan Cid PA-C Family Provider Non-Staff Primary Care Provider Address: [address] [place] [address], [place], [address] Brandyn Bush MD Attending Provider Non-Staff Referring Provider Address: [facility], [place], [address] SOFT METALS HAND ENGRAVER Treatment Note SOFT METALS HAND ENGRAVER Treatment Note Start: 08/29/22 14:15 Freq: Status: Active Protocol: Document 08/29/22 14:16 LNK (Rec: 08/29/22 14:43 LNK [id number]) Speech Pathology Treatment Note Session Time Visit Start Time 13:30 Visit Stop Time 14:15 Total Visit Minutes 45 Visit Information Plan of Care Dates 07/24/2022 - 10/24/2022 Setting Treatment Setting Outpatient Care Visit Type Note Type Treatment Note Next Note Type Next Note Type Discharge Summary General Information Patient History Pt will be seeing his neurologist every 6 months d/t some concern of possible Parkinson's disease/ PMHx is significant for alcoholism with frequent falls, the last of which occurred in 2019 during which the pt broke his hip and hit his head. He was hospitalized for more than a month. During hospitalization, he was on a ventilator for ~1 month, per pt report, and underwent hip surgery requiring placement of pins. He reported I had to learn to walk and talk again and continues currently with PT. He reported increased memory difficulty, particularly finding words, since the fall. This concerns him because his father from complications of Alzheimer's disease. The pt has had no alcohol since that 2019 fall. 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 He has a very distant history of smoking ( 1981), quitting after he developed asthma. Per pt report, pt has developmental stuttering. Subjective Identification Type Name,Date of Observations/Patient Presentation Pt is her to review the findings of his cognitive and word finding skills on date 07/24/22 Chief Complaint(s) Cognitive Patient Knowledge/Awareness of SOFT METALS HAND ENGRAVER Role Excellent in Treatment Objective Short Term Goals 1. Continue assessment of word retrieval using generative tasks (e.g., conversation, picture description) Treatment Activities Reviewed the results of the CLQT and [place] Naming Test. The results of the CLQT indicated that the pt's cognitive status was WNL across all domains (Attention, Memory, Executive Functions, Language and Visuospatial Skills) or his age. Pt did present with a mild challenge with one subtest requiring connecting alternating shapes in increasing size order. Relative to word finding difficulty, the pt's score on the BNT was WNL for his age. Strategies were introduced to assist pt in his planning and execution of ADLs such as repairing household items, etc. Additionally strategies for WFD were also provided for the pt to aid in recalling or talking around the difficult word. Written copies of all strategies were provided to the pt. Pt reported that he is successfully using similar strategies at home to those discussed. Because the pt is currently using these strategies, which would typically be targeted in therapy,and because his assessment results were determined to be WNL, ST services are not currently indicated. This was discussed with the pt, who agreed. Assessment Patient Response to Treatment Excellent Reviewed with Patient Home Exercise Program Patient/Caregiver Understanding Excellent Plan Amount of Therapy Recommended No Further Therapy Frequency of Treatment No Further Therapy Provided Patient/Caregiver Instruction Home Exercise Program, Questions/Concerns Therapy Recommendations Discharge from Speech Therapy Suggested Referral Neurology
== END 2022-08-30 14:54 | disposition home or self-care (01) ==
LOC: SP 13:15
PROVIDERS: Absent Provider Psychiatry & Neurology Neurology; Family Provider Physician Assistant; PCP Physician Assistant; Referring Provider Psychiatry & Neurology Neurology; Visit Provider Psychiatry & Neurology Neurology
DX: R13.10 Dysphagia, unspecified (principal); R49.0 Dysphonia
CPT/HCPCS: 96125; 97129; 97130

== ENCOUNTER 2022-11-02 09:43 | Emergency (ER) | payer OTHER, SELFPAY ==
[2022-11-02 09:57] VITALS: BP 130/80; PULSE 67; RESP 17; TEMP 36.3; O2SAT 99; BMI 29.1
[2022-11-02 10:51] LABS: Appearance Urine UA CLEAR; Bilirubin Urine UA NEGATIVE (NEGATIVE); Color Urine UA YELLOW; Glucose Urine UA NEGATIVE (Negative); Ketones Urine UA NEGATIVE (NEGATIVE); Leukocyte Esterase Urine UA NEGATIVE (NEGATIVE); Nitrite Urine UA NEGATIVE (Negative); Occult Blood Urine UA NEGATIVE (Negative); Protein Urine UA NEGATIVE (Negative); Specific Gravity Urine UA <=1.005 (1.000-1.035); pH Urine UA 5.5 (4.5-8.0)
[2022-11-02 10:54] LABS: Bacteria Urine None Seen; Culture Indicated Urine Cult Not Indicated; RBC Urine None Seen (0-5/HPF); Squamous Epithelial Cell Urine None Seen (0-5/HPF); Urine Comments Microscopic Normal; WBC Urine None Seen (0-5/HPF)
[2022-11-02] MEDS: LIDOCAINE 2% (GLYDO) 6 ML GEL TOP (11:03)
[2022-11-02 11:45] LABS: Bacteria Urine None Seen; RBC Urine None Seen (0-5/HPF); Squamous Epithelial Cell Urine None Seen (0-5/HPF); WBC Urine None Seen (0-5/HPF)
[2022-11-02 11:46] LABS: Culture Indicated Urine Cult Not Indicated; Urine Comments Microscopic Normal
--- NOTE | 2022-11-02 11:48 | ED_ITS ---
HPI - Male Genitourinary <WAQAS Fletcher - Last Filed: 11/02/22 11:54> General Chief complaint: Urogenital-Male Stated complaint: T-1 lower abd pain/ urine pain Time Seen by Provider: 11/02/22 11:08 History of Present Illness HPI Narrative: This is a 72-year-old gentleman who presents emergency department with difficulty urinating starting last night. Denies history retention or known prostate issues. Complains of bladder fullness and states that he has been dribbling slightly. Denies any back pain, is having normal bowel movements and denies the patient. Denies fever chills or feeling poorly. Related Data Home Medications Medication Instructions Recorded Confirmed HOMEOPATHIC SUBSTANCE (MILK 1 cap PO QDAY ##0 04/13/11 THISTLE) folic acid 800 mcg tablet 1 tabs PO QDAY ##0 04/13/11 ibuprofen 800 mg tablet 800 mg PO Q8HP ##0 04/13/11 lorazepam 1 mg tablet (Ativan) 1 mg PO Q8HP ##0 04/13/11 albuterol sulfate 90 mcg/actuation 1 puff INH PRN ##0 08/14/11 aerosol inhaler (Proventil HFA) telmisartan 40 mg tablet (Micardis) 40 mg PO QDAY ##0 08/14/11 Previous Rx's Medication Instructions Recorded tamsulosin 0.4 mg capsule (Flomax) 0.4 mg PO BEDTIME #30 caps 11/02/22 Allergies Allergy/AdvReac Type Severity Reaction Status Date / Time No Known Drug Allergies Allergy Verified 08/18/22 11:25 Review of Systems <WAQAS Fletcher - Last Filed: 11/02/22 11:54> Review of Systems ROS Unobtainable: All systems reviewed & are unremarkable except as noted in HPI and below Patient History <WAQAS Fletcher - Last Filed: 11/02/22 11:54> Medical History Neuropathy Social History Smoking Status: Former smoker Smoking Status: Former smoker tobacco type: cigarettes alcohol intake frequency: 0-2 drinks per day Substance Use Type: does not use Exam <WAQAS Fletcher - Last Filed: 11/02/22 11:54> Narrative Exam Narrative: Reviewed vitals signs and nursing notes. General: Pleasant, lying on stretcher in no acute distress, well groomed, afebrile HEENT: symmetrical facial expressions, moist mucous membranes CV: regular rate and rhythm, warm extremities Respiratory: normal work of breathing, without tachypnea or hypoxia. GI: abdomen soft, nondistended, without CVA tenderness bilaterally. My exam was after the bladder scan showing 601-700 mL, [address] proximally 700 mL output of clear yellow urine. Urine dip is negative for WBCs or RBCs. Patient denies any pain at this time, there is no dribbling around the Amin catheter site and patient states that it feels much better. MSK: moves all extremities, no weakness, normal tone, ambulatory without deficit Skin: brisk capillary refill, without rash or wound Neuro: clear speech and normal cognition, A&O x3, GCS 15, no focal motor or sensation deficits Initial Vital Signs Initial Vital Signs: Vital Signs Temperature 97.4 F L 11/02/22 09:57 Pulse Rate 67 11/02/22 09:57 Respiratory Rate 17 11/02/22 09:57 Blood Pressure 130/80 11/02/22 09:57 Pulse Oximetry 99 11/02/22 09:57 Oxygen Delivery Method Room Air 11/02/22 09:57 <Maria T Bae DO - Last Filed: 11/11/22 01:37> Initial Vital Signs Initial Vital Signs: Vital Signs Temperature 97.4 F L 11/02/22 09:57 Pulse Rate 67 11/02/22 09:57 Respiratory Rate 17 11/02/22 09:57 Blood Pressure 130/80 11/02/22 09:57 Pulse Oximetry 99 11/02/22 09:57 Oxygen Delivery Method Room Air 11/02/22 09:57 Course <WAQAS Fletcher - Last Filed: 11/02/22 11:54> Orders Ordered: Discontinued Medications Lidocaine HCl (Lidocaine 2% (Glydo) 6 Ml Gel) 6 ml TOP NOW ONE Stop: 11/02/22 10:18 Last Admin: 11/02/22 11:03 Dose: 6 ml Documented By: CTS Tamsulosin HCl (Tamsulosin 0.4 Mg Capsule) 0.4 mg PO NOW ONE Stop: 11/02/22 11:43 Last Admin: 11/02/22 11:58 Dose: 0.4 mg Documented By: CTS Vital Signs Vital signs: Vital Signs - 8 hr 11/02/22 09:57 Temperature 97.4 F L Pulse Rate 67 Respiratory Rate 17 Blood Pressure 130/80 Pulse Oximetry 99 Oxygen Delivery Method Room Air <Maria T Bae DO - Last Filed: 11/11/22 01:37> Orders Ordered: Discontinued Medications Lidocaine HCl (Lidocaine 2% (Glydo) 6 Ml Gel) 6 ml TOP NOW ONE Stop: 11/02/22 10:18 Last Admin: 11/02/22 11:03 Dose: 6 ml Documented By: CTS Tamsulosin HCl (Tamsulosin 0.4 Mg Capsule) 0.4 mg PO NOW ONE Stop: 11/02/22 11:43 Last Admin: 11/02/22 11:58 Dose: 0.4 mg Documented By: CTS Vital Signs Vital signs: Vital Signs - 8 hr 11/02/22 09:57 Temperature 97.4 F L Pulse Rate 67 Respiratory Rate 17 Blood Pressure 130/80 Pulse Oximetry 99 Oxygen Delivery Method Room Air MDM - Male Genitourinary <WAQAS Fletcher - Last Filed: 11/02/22 11:54> Lab Data Labs: Lab Results 11/02/22 11/02/22 Range/Units 10:44 11:37 Urine Color Yellow Urine Appearance Clear Urine pH 5.5 (4.5-8.0) Ur Specific Banner <=1.005 (1.000-1.035) Urine Protein Negative (Negative) Urine Glucose (UA) Negative (Negative) g/dL Urine Ketones Negative (NEGATIVE) Urine Occult Blood Negative (Negative) Urine Nitrate Negative (Negative) Urine Bilirubin Negative (NEGATIVE) Urine Urobilinogen 1.0 (0.2) E.U./dL Ur Leukocyte Esterase Negative (NEGATIVE) Urine RBC None seen None seen (0-5/HPF) Urine WBC None seen None seen (0-5/HPF) Ur Squamous Epith Cells None seen None seen (0-5/HPF) Urine Bacteria None seen None seen (None) Ur Culture Indicated? Cult not indicated Cult not indicated Micro UA Comment Microscopic normal Microscopic normal Urine Dip Bedside Urine Glucose Negative Bedside Urine Bilirubin - Negative Bedside Urine Ketone - Negative Urine Specific Banner 1.010 Bedside Urine Occult Blood - Negative Bedside Urine pH 6.0 Bedside Urine Protein - Negative Bedside Urine Urobilinogen - Negative Bedside Urine Nitrite - Negative Bedside Urine Leukocytes - Negative Esterase MDM Narrative Medical decision making narrative: Chief complaint: Difficulty urinating Differential diagnoses include but are not limited to: BPH, malignancy, prostatitis, colitis, pyelonephritis, acute cystitis, obstructive uropathy, constipation induced urinary retention, intra-abdominal mass, urolithiasis equina. I have reviewed the patient's vital signs and nursing notes as well as prior records if available. I have independently reviewed the patient's vital signs and nursing notes as well as prior records if available. Plan: Bladder scan showing 600-700 mL, Amin catheter placement running 700 mL of clear yellow urine, urine dip is negative for infection, sent for microscopy, will follow-up, patient started on Flomax, no signs of illness today, normal stools without constipation, ambulatory without deficit, no sensation deficit on exam. Amin catheter teaching, leg bag teaching, patient will go home with both and follow-up with Dr. Hardy from Urology group in 1 week or more. He was given contact information for this group and strict return precautions for any worsening, fever chills, nausea, and follow-up on his urine testing. Urine microscopy is negative for infection, no culture is indicated. Social considerations that may affect disposition: none Questions are addressed and there is agreement with the plan and for follow-up with Urology. I consulted with the ED attending physician Dr. Bae as needed for higher level of care considerations and they were available for discussion and recommendations regarding plan of care and diagnostic testing. Patient is appropriate for outpatient management. <Maria T Bae, DO - Last Filed: 11/11/22 01:37> Lab Data Labs: Lab Results 11/02/22 11/02/22 Range/Units 10:44 11:37 Urine Color Yellow Urine Appearance Clear Urine pH 5.5 (4.5-8.0) Ur Specific Banner <=1.005 (1.000-1.035) Urine Protein Negative (Negative) Urine Glucose (UA) Negative (Negative) g/dL Urine Ketones Negative (NEGATIVE) Urine Occult Blood Negative (Negative) Urine Nitrate Negative (Negative) Urine Bilirubin Negative (NEGATIVE) Urine Urobilinogen 1.0 (0.2) E.U./dL Ur Leukocyte Esterase Negative (NEGATIVE) Urine RBC None seen None seen (0-5/HPF) Urine WBC None seen None seen (0-5/HPF) Ur Squamous Epith Cells None seen None seen (0-5/HPF) Urine Bacteria None seen None seen (None) Ur Culture Indicated? Cult not indicated Cult not indicated Micro UA Comment Microscopic normal Microscopic normal Urine Dip Bedside Urine Glucose Negative Bedside Urine Bilirubin - Negative Bedside Urine Ketone - Negative Urine Specific Banner 1.010 Bedside Urine Occult Blood - Negative Bedside Urine pH 6.0 Bedside Urine Protein - Negative Bedside Urine Urobilinogen - Negative Bedside Urine Nitrite - Negative Bedside Urine Leukocytes - Negative Esterase Discharge Plan Departure Patient Disposition: Home Clinical Impression: Acute urinary retention Instructions: How to Care for Your Amin Catheter -- Male, DI for Urinary Retention in Men Activity Restrictions/Additional Instructions: *You have been diagnosed with urinary retention, no evidence of infection, we will call you if the lab's urine test says otherwise. Please start taking Flomax daily until you follow-up with the Urology Clinic. Please call Dr. Hummel office and schedule follow-up for 1 week or more. Please stay hydrated, empty your leg bag prior to going places to help prevent a full bag. Come back into the hospital if you develop signs of illness. This is likely secondary to an enlarged prostate. Please come back if you have any complications. You already received your 1st dose of Flomax today so skip tonight's dose. Take Flomax at night and hopefully this will help improve the pathway so the catheter can come out. *What to do: *Please continue to take your regular medications as directed. [x ] New medication prescriptions sent to your pharmacy: [[facility] ] [ ] New medication written as a paper prescription [ ] No new medications given *Please call and schedule follow up with your primary care provider in 2-3 days, at least for an update. Let them know you were seen in the Emergency Department for the above problem. We will electronically transmit a record of today's note if your PCP or specialist is in our system. *If you do not have a primary care provider please contact [phone] to establish care with one of the [facility] primary care providers. *Return to the Emergency Department for worsening symptoms, inability to keep liquids down, fever greater than 101F, chills, or other concerning symptom. Prescriptions: New tamsulosin [Flomax] 0.4 mg capsule 0.4 mg PO BEDTIME Qty: 30 0RF No Action folic acid 0.8 MG tablet 1 tabs PO QDAY Qty: 0 ibuprofen 800 MG tablet 800 mg PO Q8HP Qty: 0 HOMEOPATHIC SUBSTANCE (MILK THISTLE) 1 cap PO QDAY Qty: 0 lorazepam [Ativan] 1 MG tablet 1 mg PO Q8HP Qty: 0 telmisartan [Micardis] 40 MG tablet 40 mg PO QDAY Qty: 0 albuterol sulfate [Proventil HFA] 90 MCG/PUFF HFA aerosol inhaler 1 puff INH PRN Qty: 0 Referrals: Pavan Cid PA-C [Primary Care Provider] - Rodolfo Hardy MD [Physician] - 5-7 days (schedule follow up with the clinic) Stand Alone Forms: Patient Portal/API <Maria T Bae DO - Last Filed: 11/11/22 01:37> Cosign ED Attending Lizbethature Attestation: I was immediately available in the department for consultation. Documentation has been reviewed.
[2022-11-02] MEDS: TAMSULOSIN 0.4 MG CAPSULE PO (11:58)
--- NOTE | 2022-11-02 12:21 | PC.NURSE ---
Amin care and teaching performed. pt verbalized understanding. changed to a leg bag and assisted pt with dressing. Pt ambulated with cane out of department with steady gait.
== END 2022-11-02 12:22 | disposition home or self-care (01) ==
PROVIDERS: Emergency Medicine; Emergency Provider Nurse Practitioner Critical Care Medicine; Family Provider Physician Assistant; PCP Physician Assistant
DX: Z79.899 Other long term (current) drug therapy (principal); R33.8 Other retention of urine
CPT/HCPCS: 51798; 81001; 81003; 81015; 99283; 99284

== ENCOUNTER 2022-11-16 17:23 | Emergency (ER) | payer OTHER, SELFPAY ==
[2022-11-16 17:49] VITALS: BP 136/75; PULSE 88; RESP 16; TEMP 37; O2SAT 94; BMI 29.1
[2022-11-16 18:53] LABS: Appearance Urine UA CLOUDY; Bilirubin Urine UA 1+ (NEGATIVE); Color Urine UA YELLOW; Glucose Urine UA NEGATIVE (Negative); Ketones Urine UA TRACE (NEGATIVE); Leukocyte Esterase Urine UA 3+ (NEGATIVE); Nitrite Urine UA NEGATIVE (Negative); Occult Blood Urine UA 3+ (Negative); Protein Urine UA 2+ (Negative); Specific Gravity Urine UA 1.015 (1.000-1.035)
[2022-11-16 19:02] LABS: Bacteria Urine Many (>30); RBC Urine 10-30/HPF (0-5/HPF); Squamous Epithelial Cell Urine None Seen (0-5/HPF); Triple Phosphate Crystal Urine Moderate; WBC Urine >100/HPF (0-5/HPF)
[2022-11-16 19:06] LABS: Ictotest Urine Negative (Negative)
[2022-11-16 19:07] LABS: Culture Indicated Urine Specimen Cultured
[2022-11-16] MEDS: LIDOCAINE 2% (GLYDO) 6 ML GEL TOP (19:29)
--- NOTE | 2022-11-16 20:44 | ED_ITS ---
HPI - Male Genitourinary General Chief complaint: Urogenital-Male Stated complaint: Catheter not working Time Seen by Provider: 11/16/22 19:38 Source: patient Mode of arrival: Ambulatory Limitations: no limitations History of Present Illness HPI Narrative: 72-year-old male who states his catheter was not working earlier today. He states no urine was coming out he states he thinks it may have got kinked or blocked. He states there was no urine coming from around the urethral opening either. He states little bit of discomfort but not a lot of abdominal pain. He would a catheter replaced recently for urinary retention, he followed up with Urology they attempted to test and had him drinking water to see if he would pass after having his catheter removed he failed and had it replaced at that time. He states he thinks that the attachment advice for his leg may have been too close and caused a kink. His catheter was changed out here and he is now draining yellow urine. No fevers no chills no nausea or vomiting denies any abdominal back or flank pain today. He states he is otherwise been draining regularly until last night overnight and into today. He states seems to be draining well at this time with a new catheter. He denies any other issues or concerns. He does have Urology follow-up. He does not have any other concerns. Related Data Home Medications Medication Instructions Recorded Confirmed HOMEOPATHIC SUBSTANCE (MILK 1 cap PO QDAY ##0 04/13/11 THISTLE) folic acid 800 mcg tablet 1 tabs PO QDAY ##0 04/13/11 ibuprofen 800 mg tablet 800 mg PO Q8HP ##0 04/13/11 lorazepam 1 mg tablet (Ativan) 1 mg PO Q8HP ##0 04/13/11 albuterol sulfate 90 mcg/actuation 1 puff INH PRN ##0 08/14/11 aerosol inhaler (Proventil HFA) telmisartan 40 mg tablet (Micardis) 40 mg PO QDAY ##0 08/14/11 Previous Rx's Medication Instructions Recorded tamsulosin 0.4 mg capsule (Flomax) 0.4 mg PO BEDTIME #30 caps 11/02/22 mupirocin 2 % topical ointment 1 applic topical BID #22 grams 11/16/22 Allergies Allergy/AdvReac Type Severity Reaction Status Date / Time No Known Drug Allergies Allergy Verified 08/18/22 11:25 Review of Systems Review of Systems ROS Unobtainable: All systems reviewed & are unremarkable except as noted in HPI and below Patient History Medical History Neuropathy Social History Smoking Status: Former smoker Smoking Status: Former smoker tobacco type: cigarettes alcohol intake frequency: 0-2 drinks per day Substance Use Type: does not use Exam Narrative Exam Narrative: GENERAL: Alert and oriented x three, mild distress. HEENT: Head normocephalic, atraumatic, EOMI, pupils reactive, face symmetric, moist mucous membranes NECK: Supple, full range of motion CARDIOVASCULAR: Regular rate and rhythm without murmurs, rubs or gallops. RESPIRATORY: Breath sounds equal bilaterally, no wheezes rales or rhonchi. ABDOMEN: Soft, nontender. Normoactive bowel sounds all 4 quadrants. No guarding or rebound, rigidity, no mass : No CVA tenderness. Male: normal external examination except for small amount of breakdown of the urethral opening, there is some mild erythema, no drainage. Patient does not think that this is new or different but states he does not check regularly. Patient is not circumcised penis retracts easily back into the foreskin. Catheters in place and draining yellow urine. This is new catheter from nursing. No penile discharge or lesions, testicles non-tender, cremasteric reflex intact, no inguinal hernias noted. EXTREMITIES: Normal range of motion, no clubbing or edema. Neurovascularly intact NEUROLOGICAL: Cranial nerves II through XII grossly intact. Moving all extremities SKIN: Warm, dry, no petechiae, no rashes or lesions otherwise noted. Initial Vital Signs Initial Vital Signs: Vital Signs Temperature 98.6 F 11/16/22 17:49 Pulse Rate 88 11/16/22 17:49 Respiratory Rate 16 11/16/22 17:49 Blood Pressure 136/75 11/16/22 17:49 Pulse Oximetry 94 11/16/22 17:49 Oxygen Delivery Method Room Air 11/16/22 17:49 Course Orders Ordered: Discontinued Medications Lidocaine HCl (Lidocaine 2% (Glydo) 6 Ml Gel) 6 ml TOP NOW ONE Stop: 11/16/22 19:05 Last Admin: 09/01/23 19:29 Dose: 6 ml Documented By: SANJUANA Vital Signs Vital signs: Vital Signs - 8 hr 11/16/22 21:19 Pulse Rate 67 Respiratory Rate 20 Blood Pressure 187/90 H Pulse Oximetry 96 Oxygen Delivery Method Room Air MDM - Male Genitourinary Lab Data Labs: Lab Results 11/16/22 Range/Units 17:55 Urine Color Yellow Urine Appearance Cloudy Urine pH 8.0 (4.5-8.0) Ur Specific [place] 1.015 (1.000-1.035) Urine Protein 2+ H (Negative) Urine Glucose (UA) Negative (Negative) g/dL Urine Ketones Trace H (NEGATIVE) Urine Occult Blood 3+ H (Negative) Urine Nitrate Negative (Negative) Urine Bilirubin 1+ H (NEGATIVE) Ur Bilirubin Confirm Negative (Negative) Urine Urobilinogen 1.0 (0.2) E.U./dL Ur Leukocyte Esterase 3+ H (NEGATIVE) Urine RBC 10-30/hpf H (0-5/HPF) Urine WBC >100/hpf H (0-5/HPF) Ur Squamous Epith Cells None seen (0-5/HPF) Triple Phos Crystals Moderate Urine Bacteria Many (>30) H (None) Ur Culture Indicated? Specimen cultured MDM Narrative Medical decision making narrative: 72-year-old male with catheter malfunction catheter was replaced in his now draining well. Patient's urine was sent does show greater than 100 white cells, many bacteria but he is not any systemic infectious symptoms recently and has potential for colonization culture pending we will hold off on antibiotics until resulted. Patient feels comfortable with this plan. He does have a little bit of breakdown at the urethral meatus opening so was given topical antibiotic care instructions. Discharge Plan Departure Patient Disposition: Home Clinical Impression: Malfunction of Amin catheter Instructions: How to Care for Your Amin Catheter -- Male Activity Restrictions/Additional Instructions: Follow-up with your urologist as scheduled. There does appear to be a little bit of breakdown at the urethral opening, I would recommend a little topical antibiotic ointment or barrier cream to the affected area twice daily. Prescription sent to [facility] in [place]. Please return if you are having blockage of your catheter, new redness, swelling pain, urine draining from around the catheter, large clots or bleeding, abdominal back or flank pain or other new or concerning changes. Prescriptions: New mupirocin 2 % ointment 1 applic topical BID Qty: 22 0RF No Action folic acid 0.8 MG tablet 1 tabs PO QDAY Qty: 0 ibuprofen 800 MG tablet 800 mg PO Q8HP Qty: 0 HOMEOPATHIC SUBSTANCE (MILK THISTLE) 1 cap PO QDAY Qty: 0 lorazepam [Ativan] 1 MG tablet 1 mg PO Q8HP Qty: 0 telmisartan [Micardis] 40 MG tablet 40 mg PO QDAY Qty: 0 albuterol sulfate [Proventil HFA] 90 MCG/PUFF HFA aerosol inhaler 1 puff INH PRN Qty: 0 tamsulosin [Flomax] 0.4 mg capsule 0.4 mg PO BEDTIME Qty: 30 0RF Referrals: Pavan Cid PA-C [Primary Care Provider] - Stand Alone Forms: Patient Portal/API
[2022-11-16 21:19] VITALS: BP 187/90; PULSE 67; RESP 20; O2SAT 96
--- NOTE | 2022-11-16 21:35 | PC.NURSE ---
Amin catheter teaching done,new leg bag provided. Pt returned demonstration.
== END 2022-11-16 21:51 | disposition home or self-care (01) ==
PROVIDERS: Emergency Medicine; Emergency Provider Emergency Medicine; Family Provider Physician Assistant; PCP Physician Assistant
DX: T83.011A Breakdown (mechanical) of indwelling urethral catheter, initial encounter (principal)
CPT/HCPCS: 81001; 87077; 87086; 87186; 99283; 99284

== ENCOUNTER 2022-12-24 08:58 | Emergency (ER) | payer OTHER, SELFPAY ==
[2022-12-24] VITALS (8 sets, daily range): BP systolic 130–166; BP diastolic 66–80; PULSE 58–75; RESP 18–24; TEMP 36.6; O2SAT 91–95; BMI 29.1
[2022-12-24 09:36] LABS: Appearance Urine UA SL CLOUDY; Bilirubin Urine UA NEGATIVE (NEGATIVE); Color Urine UA YELLOW; Glucose Urine UA NEGATIVE (Negative); Ketones Urine UA TRACE (NEGATIVE); Leukocyte Esterase Urine UA 2+ (NEGATIVE); Nitrite Urine UA POSITIVE (Negative); Occult Blood Urine UA 2+ (Negative); Protein Urine UA 1+ (Negative); Specific Gravity Urine UA 1.025 (1.000-1.035)
--- NOTE | 2022-12-24 09:36 | ED_ITS ---
HPI - General Adult General Chief complaint: Dizziness Stated complaint: falling/passing out/cath issuse Time Seen by Provider: 12/24/22 09:03 Source: patient Mode of arrival: Wheelchair History of Present Illness HPI narrative: Patient is a 72-year-old male. He has an indwelling Amin catheter. His current catheter was placed on the of last month. He is under the care of urology in his scheduled to see a urologist again later this month. He does have a history of coronary artery disease and say that he had a ?slight? heart attack in the past. He has been followed by Cardiology but nothing currently. He is followed by the [place]. No history of strokes. He does not think that he is on any blood thinning medication. He states that that he just completed a course of antibiotics for urinary tract infection. This was a couple weeks ago. He states that he is here because he has had progressively more frequent episodes where he is passing out. He states that prior to passing out he does not get chest pain nor shortness of breath nor headaches. He states that he realizes that he is falling he did fall this morning. No injuries from the fall this morning. He did not hit his head. There was no loss of consciousness. No postictal state. Related Data Home Medications Medication Instructions Recorded Confirmed HOMEOPATHIC SUBSTANCE (MILK 1 cap PO QDAY ##0 04/13/11 THISTLE) folic acid 800 mcg tablet 1 tabs PO QDAY ##0 04/13/11 ibuprofen 800 mg tablet 800 mg PO Q8HP ##0 04/13/11 lorazepam 1 mg tablet (Ativan) 1 mg PO Q8HP ##0 04/13/11 albuterol sulfate 90 mcg/actuation 1 puff INH PRN ##0 08/14/11 aerosol inhaler (Proventil HFA) telmisartan 40 mg tablet (Micardis) 40 mg PO QDAY ##0 08/14/11 Previous Rx's Medication Instructions Recorded tamsulosin 0.4 mg capsule (Flomax) 0.4 mg PO BEDTIME #30 caps 11/02/22 mupirocin 2 % topical ointment 1 applic topical BID #22 grams 11/16/22 levofloxacin 750 mg tablet 750 mg PO DAILY 5 days #5 tabs 12/24/22 Allergies Allergy/AdvReac Type Severity Reaction Status Date / Time bee venom protein (honey bee) Allergy Verified 12/24/22 09:11 Review of Systems Review of Systems ROS Unobtainable: All systems reviewed & are unremarkable except as noted in HPI and below Patient History Medical History Neuropathy Social History Smoking Status: Former smoker Smoking Status: Former smoker tobacco type: cigarettes alcohol intake frequency: other Substance Use Type: does not use Exam Initial Vital Signs Initial Vital Signs: Vital Signs Temperature 97.8 F 12/24/22 09:11 Pulse Rate 69 12/24/22 09:11 Respiratory Rate 20 12/24/22 09:11 Blood Pressure 148/80 H 12/24/22 09:11 Pulse Oximetry 91 12/24/22 09:11 Oxygen Delivery Method Room Air 12/24/22 09:11 Const General: cooperative, comfortable and No ill appearing HENMT Head: normal to inspection and normocephalic Resp Effort & Inspection: normal respiratory effort Auscultation: clear to auscultation bilaterally Cardio Rate: regular rate Rhythm: regular rhythm GI Inspection: normal to inspection and non-distended Skin General: no rashes or lesions noted Neuro General: patient alert, patient awake, patient oriented x3 and moves all extremities Cognition: normal cognition Extrem General: capillary refill normal Course Orders Ordered: ED Orders 12/24/22 09:21 Complete Blood Count AUTO DIFF Stat Comprehensive Metabolic Panel Stat Ethanol (ETOH) Stat Lipase Stat Magnesium Stat Urinalysis and Microscopic Stat Urine Culture Stat Vital Signs Vital signs: Vital Signs - 8 hr 12/24/22 09:11 Temperature 97.8 F Pulse Rate 69 Respiratory Rate 20 Blood Pressure 148/80 H Pulse Oximetry 91 Oxygen Delivery Method Room Air Medical Decision Making Lab Data Lab results reviewed: Yes I reviewed the patient's lab results. 12/24/22 09:21 12/24/22 09:21 Labs: Lab Results 12/24/22 Range/Units 09: WBC 8.5 (4.5-11.0) X10^3/uL RBC 4.38 L (4.5-5.9) X10^6/uL Hgb 13.3 L (13.5-17.5) g/dL Hct 38.3 L (41-53) % MCV 87.5 (80-100) fL MCH 30.3 (26-34) PG MCHC 34.6 (30-36) % RDW 13.9 (11.6-14.8) % Plt Count 289 (150-400) X10^3/uL Neut % (Auto) 69.9 (50-75) % Lymph % (Auto) 19.8 L (25-40) % [place] % (Auto) 7.9 (3-14) % Eos % (Auto) 1.2 L (2-4) % Baso % (Auto) 1.2 (0-2) % Neut # (Auto) 5900 (4565-2884) /uL Lymph # (Auto) 1700 (2478-8107) /uL [place] # (Auto) 700 (0-900) /uL Eos # (Auto) 100 (0-450) /uL Baso # (Auto) 100 (0-100) /uL Sodium 137 (137-145) mmol/L Potassium 4.2 (3.4-5.1) mmol/L Chloride 104 (98-107) mmol/L Carbon Dioxide 21 L (22-32) mmol/L BUN 17 (9-20) mg/dL Creatinine 1.01 (0.66-1.25) mg/dL Estimated GFR > 60 (>60) mL/min BUN/Creatinine Ratio 16.8 (6-22) Glucose 101 (80-110) mg/dL Calcium 9.6 (8.4-10.2) mg/dL Magnesium 1.9 (1.6-2.3) mg/dL Total Bilirubin 0.9 (0.2-1.3) mg/dL AST 21 (17-59) IU/L ALT 14 (<50) IU/L Alkaline Phosphatase 71 (38-126) U/L Total Protein 6.9 (6.3-8.2) g/dL Albumin 4.2 (3.5-5.0) g/dL Globulin 2.7 (1.7-4.1) g/dL Albumin/Globulin Ratio 1.6 (1.0-2.8) Lipase 57 (23-300) U/L Urine Color Yellow Urine Appearance Sl cloudy Urine pH 5.0 (4.5-8.0) Ur Specific [place] 1.025 (1.000-1.035) Urine Protein 1+ H (Negative) Urine Glucose (UA) Negative (Negative) g/dL Urine Ketones Trace H (NEGATIVE) Urine Occult Blood 2+ H (Negative) Urine Nitrate Positive H (Negative) Urine Bilirubin Negative (NEGATIVE) Urine Urobilinogen 1.0 (0.2) E.U./dL Ur Leukocyte Esterase 2+ H (NEGATIVE) Urine RBC 5-10/hpf H (0-5/HPF) Urine WBC 10-30/hpf H (0-5/HPF) Ur Squamous Epith Cells 1-5 /hpf (0-5/HPF) Urine Bacteria Many (>30) H (None) Ur Culture Indicated? Specimen cultured Ethyl Alcohol < 10 ( - 10) mg/dL ECG Data Interpretation: Sinus rhythm Ventricular rate is 69 Normal axis Normal QRS Normal QTC No ST T wave changes MDM Narrative Medical decision making narrative: Patient feels fairly normal in the room per his report. He was able to ambulate without any issues. His labs and EKG are unremarkable. He does have a nitrite positive urine. He does have an indwelling Amin catheter. Upon further questioning I think that he was treated with Bactrim during his last visit as he states he only took the tablets at night and for 3 days. His urinalysis today would be consistent with a urinary tract infection. He has a follow-up on the with Urology to have the catheter changed and then an appointment approximately 10 days later for surgery to see if he can have the catheter completely removed. Will start the patient on Levaquin. This very well could be adding to his unsteadiness. I have low suspicion for CVA/TIA/arrhythmias and seizure. Will discharge patient home with return precautions Discharge Plan Departure Patient Disposition: Home Clinical Impression: Urinary tract infection Instructions: DI for Urinary Tract Infection (UTI) Activity Restrictions/Additional Instructions: Recommend that you continue to take all of your medications as directed. Keep all of your scheduled medical appointments. Please start taking the antibiotics that we prescribed today. These were sent to [facility] per your request. Return to the emergency department for new or worsening symptoms. Contact your primary doctor for follow-up. Prescriptions: New levofloxacin 750 mg tablet 750 mg PO DAILY 5 Days Qty: 5 0RF No Action folic acid 0.8 MG tablet 1 tabs PO QDAY Qty: 0 ibuprofen 800 MG tablet 800 mg PO Q8HP Qty: 0 HOMEOPATHIC SUBSTANCE (MILK THISTLE) 1 cap PO QDAY Qty: 0 lorazepam [Ativan] 1 MG tablet 1 mg PO Q8HP Qty: 0 telmisartan [Micardis] 40 MG tablet 40 mg PO QDAY Qty: 0 albuterol sulfate [Proventil HFA] 90 MCG/PUFF HFA aerosol inhaler 1 puff INH PRN Qty: 0 tamsulosin [Flomax] 0.4 mg capsule 0.4 mg PO BEDTIME Qty: 30 0RF mupirocin 2 % ointment 1 applic topical BID Qty: 22 0RF Referrals: Miscellaneous,Doctor, MD [Primary Care Provider] - Stand Alone Forms: Patient Portal/API
[2022-12-24 09:38] LABS: Bacteria Urine Many (>30); Culture Indicated Urine Specimen Cultured; RBC Urine 5-10/HPF (0-5/HPF); Squamous Epithelial Cell Urine 1-5 /HPF (0-5/HPF); WBC Urine 10-30/HPF (0-5/HPF)
[2022-12-24 09:48] LABS: Add Manual Diff / Slide Review NO; Basophils Absolute Auto 100 /uL (0-100); Basophils Percent Auto 1.2 % (0-2); Eosinophils Absolute Auto 100 /uL (0-450); Eosinophils Percent Auto 1.2 % (2-4); Hematocrit 38.3 % (41-53); Hemoglobin 13.3 g/dL (13.5-17.5); Lymphocytes Absolute Auto 1700 /uL (1100-4500); Lymphocytes Percent Auto 19.8 % (25-40); Mean Corpuscular HGB Conc 34.6 % (30-36); Mean Corpuscular Hemoglobin 30.3 PG (26-34); Mean Corpuscular Volume 87.5 fL (80-100); Monocytes Absolute Auto 700 /uL (0-900); Monocytes Percent Auto 7.9 % (3-14); Neutrophils Absolute Auto 5900 /uL (1500-7000); Neutrophils Percent Auto 69.9 % (50-75); Platelet Count 289 X10^3/uL (150-400); Red Blood Cell Count 4.38 X10^6/uL (4.5-5.9); Red Cell Distribution Width 13.9 % (11.6-14.8); White Blood Cell Count 8.5 X10^3/uL (4.5-11.0)
[2022-12-24 09:53] LABS: Alanine Aminotransferase 14 IU/L (<50); Albumin 4.2 g/dL (3.5-5.0); Albumin Globulin Ratio 1.6 (1.0-2.8); Alkaline Phosphatase 71 U/L (38-126); Aspartate Aminotransferase 21 IU/L (17-59); BUN Creatinine Ratio 16.8 (6-22); Bilirubin Total 0.9 mg/dL (0.2-1.3); Blood Urea Nitrogen 17 mg/dL (9-20); Calcium 9.6 mg/dL (8.4-10.2); Carbon Dioxide 21 mmol/L (22-32); Chloride 104 mmol/L (98-107); Estimated Glomerular Filt Rate > 60 mL/min (>60); Ethanol (ETOH) < 10 mg/dL; Globulin 2.7 g/dL (1.7-4.1); Glucose 101 mg/dL (80-110); HEMOLYSIS < 15 (0-50); Lipase 57 U/L (23-300); Magnesium 1.9 mg/dL (1.6-2.3); Potassium 4.2 mmol/L (3.4-5.1); Sodium 137 mmol/L (137-145); Total Protein 6.9 g/dL (6.3-8.2)
== END 2022-12-24 11:41 | disposition home or self-care (01) ==
PROVIDERS: Emergency Provider Emergency Medicine; Family Provider Physician Assistant
DX: N39.0 Urinary tract infection, site not specified (principal)
CPT/HCPCS: 36415; 80053; 80320; 81001; 83690; 83735; 85025; 87077; 87086; 87186; 93005; 99284

== ENCOUNTER 2022-12-26 10:19 | Emergency (ER) | payer OTHER, SELFPAY ==
[2022-12-26] VITALS (15 sets, daily range): BP systolic 111–172; BP diastolic 60–90; PULSE 63–78; RESP 18; TEMP 36.4; O2SAT 94–98
--- NOTE | 2022-12-26 11:18 | ED_ITS ---
HPI - Weakness General Chief complaint: Weakness Stated complaint: here T-2 cath issue/poss UTI infection/balance off Time Seen by Provider: 12/26/22 11:05 Source: patient Mode of arrival: Wheelchair History of Present Illness HPI Narrative: Patient returns here for continued falls at home. Patient states his legs get weak and he falls. He was seen here 2 days ago for the same complaint. Urinalysis was completed. Patient was placed on Levaquin. However culture sensitivity returned today and it is resistant to Levaquin. Patient has Amin leg bag in place for urinary retention. Has original placement 2 months ago. Scheduled January 21 at [facility] for cystoscopy. There was an attempt to remove it about a month ago but unsuccessful. This would be patient's 2nd or 3rd time being on antibiotics. Sensitivity shows to cephalosporins. Patient does not have home health or physical therapy at home. Patient on disability due to chronic back pain. He denies hurting himself during these 2 falls recently. He states he just fell forward but did not hit the ground very hard. Related Data Home Medications Medication Instructions Recorded Confirmed HOMEOPATHIC SUBSTANCE (MILK 1 cap PO QDAY ##0 04/13/11 THISTLE) folic acid 800 mcg tablet 1 tabs PO QDAY ##0 04/13/11 ibuprofen 800 mg tablet 800 mg PO Q8HP ##0 04/13/11 lorazepam 1 mg tablet (Ativan) 1 mg PO Q8HP ##0 04/13/11 albuterol sulfate 90 mcg/actuation 1 puff INH PRN ##0 08/14/11 aerosol inhaler (Proventil HFA) telmisartan 40 mg tablet (Micardis) 40 mg PO QDAY ##0 08/14/11 Previous Rx's Medication Instructions Recorded tamsulosin 0.4 mg capsule (Flomax) 0.4 mg PO BEDTIME #30 caps 11/02/22 mupirocin 2 % topical ointment 1 applic topical BID #22 grams 11/16/22 levofloxacin 750 mg tablet 750 mg PO DAILY 5 days #5 tabs 12/24/22 cephalexin 500 mg capsule 500 mg PO QID #20 caps 12/26/22 Allergies Allergy/AdvReac Type Severity Reaction Status Date / Time bee venom protein (honey bee) Allergy Verified 12/24/22 09:11 Review of Systems Review of Systems Narrative: GENERAL: negative chills, positive fatigue, malaise, negative fever, sweats. HEENT: negative sinus pain, ear pain, sore throat RESPIRATORY: negative dyspnea, cough CARDIOVASCULAR: negative chest pain, palpitations GASTROINTESTINAL: negative nausea, vomiting, abdominal pain : negative dysuria, frequency, hematuria MUSCULOSKELETAL: negative muscle or bony pain SKIN: negative rash, skin lesions NEUROLOGIC: negative weakness, numbness ROS Unobtainable: All systems reviewed & are unremarkable except as noted in HPI and below Patient History Medical History Neuropathy Social History household members: spouse and family Smoking Status: Former smoker Smoking Status: Former smoker tobacco type: cigarettes alcohol intake frequency: other Substance Use Type: does not use Exam Narrative Exam Narrative: GENERAL: in no distress, not toxic not dyspneic HEAD: Normocephalic. EYES: Pupils equal round ENT: Mucous membranes moist. NECK: Trachea midline. CARDIOVASCULAR: Regular rate and rhythm RESPIRATORY: Clear to auscultation. Breath sounds equal bilaterally. No wheezes, rales, or rhonchi. GASTROINTESTINAL: Abdomen soft, non-tender EXTREMITIES: No gross deformities. BACK: No flank tenderness. NEURO: AOx4. Clear speech no facial droop light touch intact bilateral face and hands. 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 SKIN: Warm and dry PSYCH: Not anxious, is cooperative Initial Vital Signs Initial Vital Signs: Vital Signs Temperature 97.6 F 12/26/22 10:31 Pulse Rate 78 12/26/22 10:31 Respiratory Rate 18 12/26/22 10:31 Blood Pressure 115/71 12/26/22 10:31 Pulse Oximetry 95 12/26/22 10:31 Oxygen Delivery Method Room Air 12/26/22 10:31 Course Orders Ordered: ED Orders 12/26/22 11:06 EKG-12 Lead Stat 12/26/22 11:07 Consult to MANUFACTURING MAINTENANCE MECHANIC - Music Department Chair Stat Consult to Physical Therapy Evaluate & Treat 12/26/22 11:30 Complete Blood Count AUTO DIFF Stat Comprehensive Metabolic Panel Stat Lactate (Lactic Acid) Stat Procalcitonin Stat Prothrombin Time INR Stat Troponin I Stat Discontinued Medications Ceftriaxone Sodium 2,000 mg/ (Sodium Chloride) 100 mls @ 200 mls/hr IV NOW ONE Stop: 10/11/23 11:27 Last Infusion: 12/26/22 12:28 Dose: Infused Documented By: Admin: 12/26/22 11:31 Dose: 200 mls/hr Documented By: DONOVAN Vital Signs Vital signs: Vital Signs - 8 hr 12/26/22 10:31 12/26/22 10:32 12/26/22 11:00 Temperature 97.6 F Pulse Rate 78 77 67 Respiratory Rate 18 Blood Pressure 115/71 Pulse Oximetry 95 95 96 Oxygen Delivery Method Room Air 12/26/22 11:01 12/26/22 11:01 12/26/22 11:30 Temperature Pulse Rate 68 66 Respiratory Rate Blood Pressure 136/75 Pulse Oximetry 96 96 Oxygen Delivery Method 12/26/22 12:00 12/26/22 12:01 12/26/22 12:01 Temperature Pulse Rate 63 64 Respiratory Rate Blood Pressure 172/79 H Pulse Oximetry 97 97 Oxygen Delivery Method 12/26/22 12:30 12/26/22 12:31 12/26/22 12:31 Temperature Pulse Rate 69 71 Respiratory Rate Blood Pressure 112/60 Pulse Oximetry 98 98 Oxygen Delivery Method 12/26/22 13:00 12/26/22 13:00 12/26/22 13:30 Temperature Pulse Rate 68 69 Respiratory Rate Blood Pressure 118/73 Pulse Oximetry 96 94 Oxygen Delivery Method 12/26/22 13:31 12/26/22 13:31 12/26/22 14:00 Temperature Pulse Rate 69 70 Respiratory Rate Blood Pressure 141/90 H Pulse Oximetry 96 97 Oxygen Delivery Method 12/26/22 14:00 12/26/22 14:30 12/26/22 14:30 Temperature Pulse Rate 76 Respiratory Rate Blood Pressure 117/77 111/74 Pulse Oximetry 97 Oxygen Delivery Method 12/26/22 15:00 12/26/22 15:00 Temperature Pulse Rate 74 Respiratory Rate Blood Pressure 113/75 Pulse Oximetry 98 Oxygen Delivery Method MDM - Weakness Lab Data 12/26/22 11:30 12/26/22 11:30 Labs: Lab Results 12/26/22 Range/Units 11:30 WBC 6.9 (4.5-11.0) X10^3/uL RBC 4.50 (4.5-5.9) X10^6/uL Hgb 13.4 L (13.5-17.5) g/dL Hct 39.7 L (41-53) % MCV 88.2 (80-100) fL MCH 29.8 (26-34) PG MCHC 33.8 (30-36) % RDW 13.8 (11.6-14.8) % Plt Count 283 (150-400) X10^3/uL Neut % (Auto) 60.6 (50-75) % Lymph % (Auto) 26.7 (25-40) % [place] % (Auto) 10.0 (3-14) % Eos % (Auto) 1.7 L (2-4) % Baso % (Auto) 1.0 (0-2) % Neut # (Auto) 4200 (6519-7312) /uL Lymph # (Auto) 1800 (1695-3759) /uL [place] # (Auto) 700 (0-900) /uL Eos # (Auto) 100 (0-450) /uL Baso # (Auto) 100 (0-100) /uL PT 13.9 H (10.1-12.7) SECONDS INR 1.2 (0.9-1.3) Sodium 136 L (137-145) mmol/L Potassium 4.4 (3.4-5.1) mmol/L Chloride 105 (98-107) mmol/L Carbon Dioxide 24 (22-32) mmol/L BUN 11 (9-20) mg/dL Creatinine 0.93 (0.66-1.25) mg/dL Estimated GFR > 60 (>60) mL/min BUN/Creatinine Ratio 11.8 (6-22) Glucose 104 (80-110) mg/dL Lactate 0.9 (0.7-2.1) mmol/L Calcium 9.5 (8.4-10.2) mg/dL Total Bilirubin 0.7 (0.2-1.3) mg/dL AST 22 (17-59) IU/L ALT 13 (<50) IU/L Alkaline Phosphatase 60 (38-126) U/L Troponin I < 0.012 (0.01-0.034) ng/mL Total Protein 6.7 (6.3-8.2) g/dL Albumin 4.0 (3.5-5.0) g/dL Globulin 2.7 (1.7-4.1) g/dL Albumin/Globulin Ratio 1.5 (1.0-2.8) Procalcitonin 0.04 (<0.5) ng/mL MDM Narrative Medical decision making narrative: Patient returns here for continued falls at home. Patient states his legs get weak and he falls. He was seen here 2 days ago for the same complaint. Urinalysis was completed. Patient was placed on Levaquin. However culture sensitivity returned today and it is resistant to Levaquin. Patient has Amin leg bag in place for urinary retention. Has original placement 2 months ago. Scheduled January 21 at [facility] for cystoscopy. There was an attempt to remove it about a month ago but unsuccessful. This would be patient's 2nd or 3rd time being on antibiotics. Sensitivity shows to cephalosporins. Patient does not have home health or physical therapy at home. Patient on disability due to chronic back pain. He denies hurting himself during these 2 falls recently. He states he just fell forward but did not hit the ground very hard. After history and exam CBC CMP lactic acid procalcitonin EKG consult Physical therapy consult social work MDM CC: Weakness Complicating co-morbidities: History of Amin catheter/UTI Data collected from: Patient and Medical records reviewed: ER records here 2 days ago Differential considered: Includes but not limited to sepsis chronic back pain deconditioning UTI Exam documented above, pertinent findings include: No CVA tenderness Lab Test results independently reviewed as above. Pertinent findings: WBC 6.9 hemoglobin 13.4 INR 1.2 sodium 136 potassium 4.4 bicarb 24 BUN 11 creatinine 0.93 GFR greater than 60 troponin less than 0.012 Procalcitonin 0.04 lactic acid 0.9 Independently reviewed EKG normal sinus rhythm rate [address] elevation or depression Consultations: Physical therapy provider has seen patient. Patient does very well with his walker. He should not be using his cane. At this time he should be able to manage at home with his walker. Not requiring at this time inpatient treatment Treatments: Rocephin Re-evaluations: Reviewed results and evaluation by Physical therapy with patient. He desires discharge home. He feels comfortable with this plan. He does agree with different antibiotic. He will be started on Keflex starting tomorrow as patient received Rocephin here. Return precautions reviewed with him. He does have follow up with Urology. Nontoxic at discharge Discussion: Appropriate for discharge home. Patient did very well with physical therapy evaluation. He feels that he can manage this at home. Return precautions reviewed with him. Keflex will be started as urinalysis does show sensitivity to Keflex. Patient has discontinue Levaquin. Nontoxic at discharge. He desires discharge home. Diagnosis: Acute UTI chronic back pain Discharge Plan Departure Patient Disposition: Home Clinical Impression: Urinary tract infection Qualifiers: Urinary tract infection type: site unspecified Hematuria presence: with hematuria Qualified Code(s): N39.0 - Urinary tract infection, site not specified Instructions: DI for Urinary Tract Infection (UTI) Activity Restrictions/Additional Instructions: See family doctor within a week for re-evaluation. Please see your urologist as scheduled for re-evaluation of your Amin catheter. Continue antibiotic Keflex tomorrow, it has been sent to your pharmacy. Return if worse if any questions or concerns. Prescriptions: New cephalexin 500 mg capsule 500 mg PO QID Qty: 20 0RF No Action folic acid 0.8 MG tablet 1 tabs PO QDAY Qty: 0 ibuprofen 800 MG tablet 800 mg PO Q8HP Qty: 0 HOMEOPATHIC SUBSTANCE (MILK THISTLE) 1 cap PO QDAY Qty: 0 lorazepam [Ativan] 1 MG tablet 1 mg PO Q8HP Qty: 0 telmisartan [Micardis] 40 MG tablet 40 mg PO QDAY Qty: 0 albuterol sulfate [Proventil HFA] 90 MCG/PUFF HFA aerosol inhaler 1 puff INH PRN Qty: 0 tamsulosin [Flomax] 0.4 mg capsule 0.4 mg PO BEDTIME Qty: 30 0RF mupirocin 2 % ointment 1 applic topical BID Qty: 22 0RF levofloxacin 750 mg tablet 750 mg PO DAILY 5 Days Qty: 5 0RF Referrals: Miscellaneous,Doctor, MD [Primary Care Provider] - Stand Alone Forms: Patient Portal/API
[2022-12-26] MEDS: cefTRIAXone 2,000 MG in SODIUM CHLORIDE 0.9% 100 ML 200 MG IV (11:31)
[2022-12-26 11:39] LABS: Add Manual Diff / Slide Review NO; Basophils Absolute Auto 100 /uL (0-100); Eosinophils Absolute Auto 100 /uL (0-450); Eosinophils Percent Auto 1.7 % (2-4); Hematocrit 39.7 % (41-53); Hemoglobin 13.4 g/dL (13.5-17.5); Lymphocytes Absolute Auto 1800 /uL (1100-4500); Lymphocytes Percent Auto 26.7 % (25-40); Mean Corpuscular HGB Conc 33.8 % (30-36); Mean Corpuscular Hemoglobin 29.8 PG (26-34); Mean Corpuscular Volume 88.2 fL (80-100); Monocytes Absolute Auto 700 /uL (0-900); Neutrophils Absolute Auto 4200 /uL (1500-7000); Neutrophils Percent Auto 60.6 % (50-75); Platelet Count 283 X10^3/uL (150-400); Red Cell Distribution Width 13.8 % (11.6-14.8); White Blood Cell Count 6.9 X10^3/uL (4.5-11.0)
[2022-12-26 11:56] LABS: INR 1.2 (0.9-1.3); Prothrombin Time 13.9 SECONDS (10.1-12.7)
[2022-12-26 12:01] LABS: Lactate (Lactic Acid) 0.9 mmol/L (0.7-2.1)
[2022-12-26 12:02] LABS: Alanine Aminotransferase 13 IU/L (<50); Albumin Globulin Ratio 1.5 (1.0-2.8); Alkaline Phosphatase 60 U/L (38-126); Aspartate Aminotransferase 22 IU/L (17-59); BUN Creatinine Ratio 11.8 (6-22); Bilirubin Total 0.7 mg/dL (0.2-1.3); Blood Urea Nitrogen 11 mg/dL (9-20); Calcium 9.5 mg/dL (8.4-10.2); Carbon Dioxide 24 mmol/L (22-32); Chloride 105 mmol/L (98-107); Estimated Glomerular Filt Rate > 60 mL/min (>60); Globulin 2.7 g/dL (1.7-4.1); Glucose 104 mg/dL (80-110); Potassium 4.4 mmol/L (3.4-5.1); Sodium 136 mmol/L (137-145); Total Protein 6.7 g/dL (6.3-8.2)
[2022-12-26 12:15] LABS: HEMOLYSIS 39 (0-50); Troponin I < 0.012 ng/mL (0.01-0.034)
[2022-12-26 12:20] LABS: Procalcitonin 0.04 ng/mL (<0.5)
--- NOTE | 2022-12-26 13:25 | PT.IIE ---
Medical History (Last Reviewed 12/26/22 @ 11:21 by Rodolfo Lewis MD) Neuropathy Physical Therapy Inpatient Evaluation/Re-Eval M1 PT/OT-IP Prior Functional Status Start: 12/26/22 16:35 Freq: Status: Active Protocol: Document 12/26/22 13:25 AB (Rec: 12/26/22 16:46 AB [email or web address]) Medical Review Prior Functional Status Medical History Reviewed Yes Communication able to make needs known Mobility and Gait pt stated that he is modified independent with all mobilities and ambulation using either a SPC or 2 walking sticks indoors and 2 walking sticks for outdoor mobility Social History Household Members spouse,family Living Arrangements House Number of Floors (Floors) One Floor Number of Stairs To Enter/Railing? 1 step to enter Home Environment Standard Height Toilet,Walk in Shower Home Equipment Front Wheel Walker,Four Wheel Walker,Straight Cane,Shower Seat without Backrest,Hand Held Shower Additional Social History Comment pt has walking sticks at home M2 PT-IP Current Condition Start: 12/26/22 16:35 Freq: Status: Active Protocol: Document 12/26/22 13:25 AB (Rec: 12/26/22 16:46 AB [email or web address]) Physical Therapy Current Condition Current Condition Evaluation Date 12/26/22 Treatment Diagnosis UTI; weakness Onset Date 12/26/22 M3 PT-IP Subjective Start: 12/26/22 16:35 Freq: Status: Active Protocol: Document 12/26/22 13:25 AB (Rec: 12/26/22 16:46 AB [email or web address]) Subjective Physical Therapy Visit Type Type Initial Evaluation Visit Start Time 13:25 Visit Stop Time 13:59 Total Visit Minutes 34 Number of ACCOUNTING RECRUITER Visits 0 Physical Therapy Visit Comments Patient Comments agreeable to do PT Therapy Pain Assessment Pain Present Pain Present Denied Pain M4 PT-IP Mobility and Gait Start: 12/26/22 16:35 Freq: Status: Active Protocol: Document 12/26/22 13:25 AB (Rec: 12/26/22 16:46 AB [email or web address]) PT-Bed Mobility Assessment Supine to Sit Supine to Sit Standby Assistance PT-Transfer Assessment Sit to and From Stand Sit to and from Stand Contact Guard Assistance,1 Person Assistance,Use of Upper Extremities Equipment Transfer Assistive Device Gait Belt,Front Wheeled Walker Orthotic/Prosthetic Devices or Brace: No Comments Mobility Comments pt supine in bed. pt agreeable to do PT. completed supine to sit SBA. able to sit on EOB SBA. completed sit to stand CGA and ambulated ~ 50 ft using FWW CGA. cued for safety and steadiness. noted increase B knee flexion midway ambulation and with dragging gait. pt went back to his room and sat on EOB. educated pt on safety and use of FWW at this time for steadiness. pt agreed. pt stated that his spouse and son /grandson will be able to assist him as needed. pt wanting to stay seated on EOB. call light and table placed next to pt. Gait Assessment Gait Gait Assistance Required: Contact Guard Assist Distance (Feet) 50 Able to Maintain Weight Bearing Status Yes During Gait Assistive Devices Assistive Device Gait Belt,Front Wheeled Walker Orthotic/Prosthetic Devices or Brace: No Gait Deviations General Gait Pattern Decreased Stride Length, Decreased Feet Clearance,Step- to Gait Factors Limiting Gait Function Factors Limiting Gait Function Decreased Activity Tolerance, Decreased Strength,Difficulty Following Directions,Poor Balance,Poor Safety Awareness PT-Balance Assessment Sitting Balance and Reactions Static Sitting Balance Ability Normal Dynamic Sitting Balance Ability Good Standing Balance and Reactions Static Standing Balance Ability Fair Dynamic Standing Balance Ability Fair Device Used FWW M5 PT-IP Objective Assessments Start: 12/26/22 16:35 Freq: Status: Active Protocol: Document 12/26/22 13:25 AB (Rec: 12/26/22 16:46 AB [email or web address]) Orientation Orientation/Cognition Level of Alertness Alert Orientation Name,Place,Situation Language Function Ability No Deficits Noted Safety Awareness Decreased Safety Awareness Memory Description No Deficits Noted Gross Range of Motion Lower Extremity ROM Assessment Within Functional Limits Strength Lower Extremity Strength Assessment Within Functional Limits Muscle Tone Muscle Tone WNL Yes M6 PT-IP Treatment Start: 12/26/22 16:35 Freq: Status: Active Protocol: Document 12/26/22 13:25 AB (Rec: 12/26/22 16:46 AB [email or web address]) Physical Therapy Treatment Education Education Provided Safety M7 PT-IP Assessment and Plan Start: 12/26/22 16:35 Freq: Status: Active Protocol: Document 12/26/22 13:25 AB (Rec: 12/26/22 16:46 AB [email or web address]) PT Summary Assessment and Plan Potential Rehabilitation Potential Fair Status of Condition at Evaluation Stable Summary Impairments Pain,ROM,Strength,Balance, Coordination,Sensation,Tone, Cognition,Bed Mobility, Transfers,Gait,Activity Tolerance Assessment Summary PT eval order received from the ED to assess pt's safety going home. pt presented to the ED after falling x 2. per nurse, pt was just in the ED a few days ago, also after falling. Pt dx with UTI and affecting mobility and activity tolerance. pt stated that his legs just all of a sudden feels weak and gave out on him. pt currently able to ambulate using FWW CGA ~ 50 ft. educated pt on safety and use of FWW at this time. pt stated that family can provide assistance to him and pt wants to go home. Recommending use of FWW and family to assist pt at home. Goals Bed Mobility Goal Independent Transfer Goal Independent,Front Wheeled Walker Gait Goal Independent,Front Wheel Walker Gait Distance 150 Other Goals improve transfers and ambulation using SPC mod I 300 ft Days to Meet Goals 5 Frequency of Treatment Frequency Of Treatment Once a Day Treatment Plan Physical Therapy Treatment Plan Bed Mobility Training,Transfer Training,Gait Training, Therapeutic Exercise,Balance Retraining,Discharge Planning, Hot or Cold Pack,Neuromuscular Re-ed,Coordination Retraining Precautions Other Precautions falls Recommendations To Nursing Amount of Assist Needed 1 Person Assist Discharge Recommendations PT Discharge Recommendations Home with 08/10 Assist Available,Home Health Transportation Needs at Discharge Private Vehicle
== END 2022-12-26 15:14 | disposition home or self-care (01) ==
PROVIDERS: Emergency Provider Emergency Medicine; Family Provider Physician Assistant
DX: N39.0 Urinary tract infection, site not specified (principal)
CPT/HCPCS: 80053; 83605; 84145; 84484; 85025; 85610; 93005; 96365; 97161; 99283; 99284; J0696

== ENCOUNTER 2022-12-27 09:31 | Emergency (ER) | payer OTHER, SELFPAY ==
[2022-12-27] VITALS (19 sets, daily range): BP systolic 73–195; BP diastolic 45–88; PULSE 62–73; RESP 18; TEMP 36.4; O2SAT 92–97; BMI 26.7
--- NOTE | 2022-12-27 09:46 | DI.CT.S_ITS ---
PROCEDURE: CT HEAD/BRAIN WO CON INDICATIONS: COLLAPSING EPISODES/NOT SYNCOPE TECHNIQUE: Noncontrast 4.5 mm thick angled axial sections acquired from the foramen magnum to the vertex, with coronal and sagittal reformats. For radiation dose reduction, the following was used: automated exposure control, adjustment of mA and/or kV according to patient size. COMPARISON: None. FINDINGS: Image quality: This examination is limited by involuntary motion artifact. Mild streak artifact can be seen through the skull base. CSF spaces: Basal cisterns are patent. No extra-axial fluid collections. The ventricles are symmetric in size and shape. Brain: No intracranial bleeds or masses. There is cerebral volume loss for age, with resultant ventricular and sulcal prominence. There are periventricular and deep white matter chronic small vessel ischemic changes. There is intracranial internal carotid artery atherosclerosis. Skull and face: Mild skin thickening can be seen involving the left forehead, as on series 2, image 10. No underlying fracture is seen. Calvarium and visualized facial bones appear intact, without suspicious lesions. Sinuses: Visualized sinuses and mastoids are clear. IMPRESSION: No acute intracranial hemorrhage is seen. No acute intracranial process is seen. Mild skin thickening can be seen involving the left forehead. Please correlate with soft tissue injury. No displaced calvarial fracture can be seen. Dictated by: Vladislav Pizarro M.D. on 12/27/2022 at 9:17 Approved by: Vladislav Pizarro M.D. on 12/27/2022 at 9:19
--- NOTE | 2022-12-27 09:46 | DI.RAD.S_ITS ---
PROCEDURE: XR CHEST 1V INDICATIONS: weakness/general TECHNIQUE: One view of the chest was acquired. COMPARISON: [facility], , CHEST 2 VIEW, 04/13/2011, 14:48. FINDINGS: Surgical changes and devices: None. Lungs and pleura: Patchy ill-defined left basilar, retrocardiac opacities. No pneumothorax. No substantial pleural effusion. Mediastinum: Mediastinal contours appear normal. Heart size is normal. Bones and chest wall: No suspicious bony lesions. Overlying soft tissues appear unremarkable. IMPRESSION: Patchy ill-defined left basilar airspace opacities likely representing pneumonia. Recommend follow up chest radiograph 4-6 weeks after treatment to document resolution of findings and/or return to baseline examination. Dictated by: Geovanny Christine M.D. on 12/27/2022 at 10:31 Approved by: Geovanny Christine M.D. on 12/27/2022 at 10:35
--- NOTE | 2022-12-27 09:47 | ED_ITS ---
HPI - Weakness General Chief complaint: Weakness Stated complaint: can't stand x3 this morning Time Seen by Provider: 12/27/22 09:36 Source: patient Mode of arrival: Wheelchair History of Present Illness HPI Narrative: 72-year-old male with history of chronic back pain, urinary retention with Amin catheter in place, coronary artery disease presents by private vehicle from home for ?collapsing episodes?. This is patient's 3rd visit for same since 12/24/22. Patient diagnosed with UTI on 12/24 and dc'd with levaquin. He returned on 12/26 for continuing symptoms. Cultures were reviewed, which showed that patient had resistance to Levaquin, but sensitivity to cephalosporins. He was given 2 g of Rocephin, laboratory work was otherwise unremarkable, and patient was even evaluated by Physical therapy, who ambulated the patient and recommended front wheel walker, but otherwise cleared patient for dc home with family. Patient states that this mornign he had 3 collapsing episodes. He states that these use to intermittently happened when he was walking, but today it was even while he was sitting in a chair. He states that he will be sitting there when out of no where his entire body we will feel generally weak and he will ?collapse?. He denies passing out or even nearly passing out. He states that he is aware during this entire event. Despite 3 collapsing episodes he denies hitting his head or injuring himself. Related Data Home Medications Medication Instructions Recorded Confirmed HOMEOPATHIC SUBSTANCE (MILK 1 cap PO QDAY ##0 04/13/11 THISTLE) folic acid 800 mcg tablet 1 tabs PO QDAY ##0 04/13/11 ibuprofen 800 mg tablet 800 mg PO Q8HP ##0 04/13/11 lorazepam 1 mg tablet (Ativan) 1 mg PO Q8HP ##0 04/13/11 albuterol sulfate 90 mcg/actuation 1 puff INH PRN ##0 08/14/11 aerosol inhaler (Proventil HFA) telmisartan 40 mg tablet (Micardis) 40 mg PO QDAY ##0 08/14/11 Previous Rx's Medication Instructions Recorded tamsulosin 0.4 mg capsule (Flomax) 0.4 mg PO BEDTIME #30 caps 11/02/22 mupirocin 2 % topical ointment 1 applic topical BID #22 grams 11/16/22 levofloxacin 750 mg tablet 750 mg PO DAILY 5 days #5 tabs 12/24/22 cephalexin 500 mg capsule 500 mg PO QID #20 caps 12/26/22 Allergies Allergy/AdvReac Type Severity Reaction Status Date / Time bee venom protein (honey bee) Allergy Verified 12/24/22 09:11 Review of Systems Review of Systems Narrative: CONSTITUTIONAL- Denies: fever, chills, fatigue HEENT- Denies: sore throat, nosebleed, vision changes RESPIRATORY- Denies: shortness of breath, cough, wheezing CARDIAC- Denies: chest pain, edema, orthopnea GI- Denies: abdominal pain, nausea, vomiting, constipation, diarrhea - Denies: frequency, dysuria, hematuria, flank pain MSK- Denies: extremity pain, extremity swelling, joint pain, joint swelling SKIN- Denies: rash, itching, burn, swelling NEUROLOGICAL- Reports: generalized weakness episodes Denies: headache, numbness, dizziness PSYCHIATRIC- Denies: anxiety, depression, suicidal ideation, homicidal ideation Patient History Medical History Neuropathy Social History household members: spouse and family Smoking Status: Former smoker Smoking Status: Former smoker tobacco type: cigarettes alcohol intake frequency: other Substance Use Type: does not use Exam Initial Vital Signs Initial Vital Signs: Vital Signs Temperature 97.6 F 12/27/22 09:40 Pulse Rate 73 12/27/22 09:40 Respiratory Rate 18 12/27/22 09:40 Blood Pressure 119/78 12/27/22 09:40 Pulse Oximetry 95 12/27/22 09:40 Oxygen Delivery Method Room Air 12/27/22 09:40 Const: Awake, alert, no acute distress, appears chronically unwell, nontoxic Eyes: PERRL, EOMI, conjunctiva normal ENT: Atraumatic, dentition normal, mucous membranes moist Cardiac: regular rate, regular rhythm RESP: unlabored, clear bilaterally, no wheezing GI: Atraumatic, soft, nontender, nondistended, no rebound, no guarding MSK: Atraumatic, full range of motion, pulses equal Skin: Warm, Dry, intact, no rashes Neuro: AO x3, CN II-XII grossly intact, ambulates with walker, 5/5 muscle strength upper and lower extremities Psych: affect normal, mood normal, not suicidal, not homicidal Course Orders Ordered: ED Orders 12/27/22 09:46 CT head/brain wo con Stat Chest [XR chest 1V] Stat 12/27/22 10:00 CBC Auto Diff [Complete Blood Count AUTO DIFF] Stat CMP [Comprehensive Metabolic Panel] Stat Magnesium Stat PHOS [Phosphorous] Stat 12/27/22 10:58 CT chest w con Stat Discontinued Medications Sodium Chloride (Normal Saline 0.9%) 1,000 mls @ 1,000 mls/hr IV BOLUS ONE Stop: 12/27/22 11:53 Last Admin: 12/27/22 11:18 Dose: 1,000 mls/hr Documented By: ELKE Vital Signs Vital signs: Vital Signs - 8 hr 12/27/22 09:40 12/27/22 09:40 12/27/22 10:05 Temperature 97.6 F Pulse Rate 73 72 71 Pulse Rate [Orthostatic Lying] Pulse Rate [Orthostatic Sitting] Respiratory Rate 18 Blood Pressure 119/78 Blood Pressure [Orthostatic Lying] Blood Pressure [Orthostatic Sitting] Blood Pressure [Orthostatic Standing] Pulse Oximetry 95 95 92 Oxygen Delivery Method Room Air 12/27/22 10:06 12/27/22 10:06 12/27/22 10:08 Temperature Pulse Rate 70 73 Pulse Rate [Orthostatic Lying] Pulse Rate [Orthostatic Sitting] Respiratory Rate Blood Pressure 131/80 Blood Pressure [Orthostatic Lying] Blood Pressure [Orthostatic Sitting] Blood Pressure [Orthostatic Standing] Pulse Oximetry 95 96 Oxygen Delivery Method 12/27/22 10:08 12/27/22 10:30 12/27/22 10:30 Temperature Pulse Rate 66 Pulse Rate [Orthostatic Lying] Pulse Rate [Orthostatic Sitting] Respiratory Rate Blood Pressure 146/77 H 163/85 H Blood Pressure [Orthostatic Lying] Blood Pressure [Orthostatic Sitting] Blood Pressure [Orthostatic Standing] Pulse Oximetry 97 Oxygen Delivery Method 12/27/22 10:46 12/27/22 10:46 12/27/22 10:47 Temperature Pulse Rate 68 69 Pulse Rate [Orthostatic Lying] Pulse Rate [Orthostatic Sitting] Respiratory Rate Blood Pressure 150/85 H Blood Pressure [Orthostatic Lying] Blood Pressure [Orthostatic Sitting] Blood Pressure [Orthostatic Standing] Pulse Oximetry 93 96 Oxygen Delivery Method 12/27/22 10:47 12/27/22 10:49 12/27/22 10:50 Temperature Pulse Rate 69 Pulse Rate [Orthostatic Lying] Pulse Rate [Orthostatic Sitting] Respiratory Rate Blood Pressure 112/68 73/45 L Blood Pressure [Orthostatic Lying] Blood Pressure [Orthostatic Sitting] Blood Pressure [Orthostatic Standing] Pulse Oximetry 96 Oxygen Delivery Method 12/27/22 10:50 12/27/22 10:57 12/27/22 11:00 Temperature Pulse Rate Pulse Rate [Orthostatic Lying] 68 Pulse Rate [Orthostatic Sitting] 69 Respiratory Rate Blood Pressure 128/67 145/70 H Blood Pressure [Orthostatic Lying] 150/85 H Blood Pressure [Orthostatic Sitting] 112/68 Blood Pressure [Orthostatic Standing] 73/45 L Pulse Oximetry Oxygen Delivery Method 12/27/22 11:00 12/27/22 11:14 12/27/22 11:14 Temperature Pulse Rate 69 63 Pulse Rate [Orthostatic Lying] Pulse Rate [Orthostatic Sitting] Respiratory Rate Blood Pressure 195/88 H Blood Pressure [Orthostatic Lying] Blood Pressure [Orthostatic Sitting] Blood Pressure [Orthostatic Standing] Pulse Oximetry 95 96 Oxygen Delivery Method 12/27/22 11:19 12/27/22 11:19 12/27/22 11:30 Temperature Pulse Rate 66 63 Pulse Rate [Orthostatic Lying] Pulse Rate [Orthostatic Sitting] Respiratory Rate Blood Pressure 142/80 H Blood Pressure [Orthostatic Lying] Blood Pressure [Orthostatic Sitting] Blood Pressure [Orthostatic Standing] Pulse Oximetry 96 97 Oxygen Delivery Method 12/27/22 11:31 12/27/22 11:31 12/27/22 11:46 Temperature Pulse Rate 62 65 Pulse Rate [Orthostatic Lying] Pulse Rate [Orthostatic Sitting] Respiratory Rate Blood Pressure 187/87 H Blood Pressure [Orthostatic Lying] Blood Pressure [Orthostatic Sitting] Blood Pressure [Orthostatic Standing] Pulse Oximetry 96 96 Oxygen Delivery Method 12/27/22 11:46 12/27/22 12:00 12/27/22 12:01 Temperature Pulse Rate 63 66 Pulse Rate [Orthostatic Lying] Pulse Rate [Orthostatic Sitting] Respiratory Rate Blood Pressure 162/75 H Blood Pressure [Orthostatic Lying] Blood Pressure [Orthostatic Sitting] Blood Pressure [Orthostatic Standing] Pulse Oximetry 97 96 Oxygen Delivery Method 12/27/22 12:01 12/27/22 12:15 12/27/22 12:15 Temperature Pulse Rate 66 Pulse Rate [Orthostatic Lying] Pulse Rate [Orthostatic Sitting] Respiratory Rate Blood Pressure 185/88 H 174/77 H Blood Pressure [Orthostatic Lying] Blood Pressure [Orthostatic Sitting] Blood Pressure [Orthostatic Standing] Pulse Oximetry 97 Oxygen Delivery Method MDM - Weakness Lab Data 12/27/22 10:00 12/27/22 10:00 Labs: Lab Results 12/27/22 Range/Units 10:00 WBC 6.7 (4.5-11.0) X10^3/uL RBC 4.63 (4.5-5.9) X10^6/uL Hgb 13.9 (13.5-17.5) g/dL Hct 40.8 L (41-53) % MCV 88.2 (80-100) fL MCH 30.0 (26-34) PG MCHC 34.0 (30-36) % RDW 13.9 (11.6-14.8) % Plt Count 286 (150-400) X10^3/uL Neut % (Auto) 63.7 (50-75) % Lymph % (Auto) 23.7 L (25-40) % [place] % (Auto) 9.1 (3-14) % Eos % (Auto) 2.0 (2-4) % Baso % (Auto) 1.5 (0-2) % Neut # (Auto) 4300 (1196-5222) /uL Lymph # (Auto) 1600 (1870-5716) /uL [place] # (Auto) 600 (0-900) /uL Eos # (Auto) 100 (0-450) /uL Baso # (Auto) 100 (0-100) /uL Sodium 137 (137-145) mmol/L Potassium 4.4 (3.4-5.1) mmol/L Chloride 103 (98-107) mmol/L Carbon Dioxide 22 (22-32) mmol/L BUN 12 (9-20) mg/dL Creatinine 0.91 (0.66-1.25) mg/dL Estimated GFR > 60 (>60) mL/min BUN/Creatinine Ratio 13.2 (6-22) Glucose 106 (80-110) mg/dL Calcium 9.5 (8.4-10.2) mg/dL Phosphorus 3.6 (2.3-3.7) mg/dL Magnesium 1.9 (1.6-2.3) mg/dL Total Bilirubin 0.8 (0.2-1.3) mg/dL AST 25 (17-59) IU/L ALT 14 (<50) IU/L Alkaline Phosphatase 56 (38-126) U/L Total Protein 7.1 (6.3-8.2) g/dL Albumin 4.3 (3.5-5.0) g/dL Globulin 2.8 (1.7-4.1) g/dL Albumin/Globulin Ratio 1.5 (1.0-2.8) ECG Data Interpretation: Normal sinus rhythm rate 71 beats per minute. Normal axis, no ST T wave changes, no STEMI MDM Narrative Medical decision making narrative: Chronically unwell appearing but not acutely toxic patient presenting for episodes that he describes as ?collapsing?. Patient describes an episode where his entire body will feel weak and he'll slump over, however remains conscious the entire time. Patient did have blood work performed yesterday that was unremarkable. Plan to repeat laboratory work and we will get brought her imaging to assess for any other possible findings of patient's described symptoms. At this time he is neurologically intact and has no focal neurologic deficits. Yesterday patient was ambulatory throughout the emergency department with physical therapy. Laboratory work is reviewed, no changes from previous. Orthostatics were measured, patient did have noticeable drop when going from lying to sitting up, however otherwise patient has remained hemodynamically stable in the emergency department without any collapsing incidents. Of note, chest x-ray shows possible pneumonia, CT of the chest indicates atelectasis versus inflammation. In the setting of numerous normal white blood cell counts, negative procalcitonin, absence of respiratory symptoms this is likely atelectasis. Family at bedside states that the collapsing incidents only seemed to happen when the patient gets up in the morning, and they believe this could be the cause of the patient's episodes. They will monitor the patient to make sure that he stays adequately hydrated and performs maneuvers at home to decrease risk of orthostatic events. They will [employer] his antibiotic prescription this morning Discharge Plan Departure Patient Disposition: Home Clinical Impression: Weakness Instructions: DI for Orthostatic Hypotension, DI for Muscle Weakness Prescriptions: No Action folic acid 0.8 MG tablet 1 tabs PO QDAY Qty: 0 ibuprofen 800 MG tablet 800 mg PO Q8HP Qty: 0 HOMEOPATHIC SUBSTANCE (MILK THISTLE) 1 cap PO QDAY Qty: 0 lorazepam [Ativan] 1 MG tablet 1 mg PO Q8HP Qty: 0 telmisartan [Micardis] 40 MG tablet 40 mg PO QDAY Qty: 0 albuterol sulfate [Proventil HFA] 90 MCG/PUFF HFA aerosol inhaler 1 puff INH PRN Qty: 0 tamsulosin [Flomax] 0.4 mg capsule 0.4 mg PO BEDTIME Qty: 30 0RF mupirocin 2 % ointment 1 applic topical BID Qty: 22 0RF levofloxacin 750 mg tablet 750 mg PO DAILY 5 Days Qty: 5 0RF cephalexin 500 mg capsule 500 mg PO QID Qty: 20 0RF Referrals: Miscellaneous,Doctor, MD [Primary Care Provider] - Stand Alone Forms: Patient Portal/API
[2022-12-27 10:12] LABS: Add Manual Diff / Slide Review NO; Basophils Absolute Auto 100 /uL (0-100); Basophils Percent Auto 1.5 % (0-2); Eosinophils Absolute Auto 100 /uL (0-450); Hematocrit 40.8 % (41-53); Hemoglobin 13.9 g/dL (13.5-17.5); Lymphocytes Absolute Auto 1600 /uL (1100-4500); Lymphocytes Percent Auto 23.7 % (25-40); Mean Corpuscular Volume 88.2 fL (80-100); Monocytes Absolute Auto 600 /uL (0-900); Monocytes Percent Auto 9.1 % (3-14); Neutrophils Absolute Auto 4300 /uL (1500-7000); Neutrophils Percent Auto 63.7 % (50-75); Platelet Count 286 X10^3/uL (150-400); Red Blood Cell Count 4.63 X10^6/uL (4.5-5.9); Red Cell Distribution Width 13.9 % (11.6-14.8); White Blood Cell Count 6.7 X10^3/uL (4.5-11.0)
[2022-12-27 10:40] LABS: Alanine Aminotransferase 14 IU/L (<50); Albumin 4.3 g/dL (3.5-5.0); Albumin Globulin Ratio 1.5 (1.0-2.8); Alkaline Phosphatase 56 U/L (38-126); Aspartate Aminotransferase 25 IU/L (17-59); BUN Creatinine Ratio 13.2 (6-22); Bilirubin Total 0.8 mg/dL (0.2-1.3); Blood Urea Nitrogen 12 mg/dL (9-20); Calcium 9.5 mg/dL (8.4-10.2); Carbon Dioxide 22 mmol/L (22-32); Chloride 103 mmol/L (98-107); Estimated Glomerular Filt Rate > 60 mL/min (>60); Globulin 2.8 g/dL (1.7-4.1); Glucose 106 mg/dL (80-110); HEMOLYSIS 93 (0-50); Magnesium 1.9 mg/dL (1.6-2.3); Phosphorous 3.6 mg/dL (2.3-3.7); Potassium 4.4 mmol/L (3.4-5.1); Sodium 137 mmol/L (137-145); Total Protein 7.1 g/dL (6.3-8.2)
--- NOTE | 2022-12-27 10:55 | PC.NURSE ---
RN obtained orthostatic BP, pt's BP dropped from 150 systolic to 73 systolic from laying to sitting. Pt states he felt light headed upon standing. Dr. Mendoza notified. Verbal order for 1 liter NS bolus. RN instructed pt to remain laying in bed.
--- NOTE | 2022-12-27 10:58 | DI.CT.S_ITS ---
PROCEDURE: CT CHEST W CON INDICATIONS: ABNORMAL CXR TECHNIQUE: After the administration of intravenous contrast, 5 mm thick sections acquired from the pulmonary apices to the posterior costophrenic angles. 1 mm axial lung, 5 mm thick coronal and sagittal reformats and 7 mm axial MIP were acquired. For radiation dose reduction, the following was used: automated exposure control, adjustment of mA and/or kV according to patient size. COMPARISON: Outside Film, CT, CT CHEST WITHOUT CONTRAST, 07/15/2018, 15:13. [facility], CR, XR CHEST 1V, 12/27/2022, 10:02. FINDINGS: Image quality: Excellent. Lungs and pleura: Patchy ground-glass opacities involving the left lower lobe compatible with radiographic findings. Otherwise, lungs are clear without other focal consolidations, pulmonary masses, or suspicious nodules. No pneumothorax seen. No pleural effusion. Central and peripheral airways are patent and normal in caliber. Mediastinum: Heart size is normal. Multivessel atherosclerotic calcifications of the coronary arteries. Atherosclerotic calcifications of the aortic arch are present. No pericardial effusion. No mediastinal or hilar adenopathy by size criteria. Thoracic aorta and central pulmonary arteries are normal in size. Esophagus is normal in caliber. Mild circumferential distal esophageal wall thickening and fluid. No hiatal hernia. Bones and chest wall: No suspicious bony lesions. No acute vertebral body compression fractures. No axillary or supraclavicular adenopathy by size criteria. Thyroid gland is unremarkable . Abdomen: Visualized upper abdominal solid organs appear normal. Upper abdominal bowel loops are normal in caliber. IMPRESSION: Patchy ground-glass opacities of the left lower lobe which may represent atelectasis or an infectious/inflammatory process. No focal consolidation, mass, or suspicious pulmonary nodules. Mild distal esophageal wall thickening and esophageal fluid which may represent esophagitis. Recommend clinical correlation. Other chronic findings as above Dictated by: Geovanny Christine M.D. on 12/27/2022 at 12:14 Approved by: Geovanny Christine M.D. on 12/27/2022 at 12:20
[2022-12-27] MEDS: SODIUM CHLORIDE 0.9% 1,000 ML 1000 ML IV (11:18)
== END 2022-12-27 12:39 | disposition home or self-care (01) ==
PROVIDERS: Emergency Provider Emergency Medicine; Family Provider Physician Assistant
DX: I95.1 Orthostatic hypotension (principal); R53.1 Weakness
CPT/HCPCS: 70450; 71045; 71260; 80053; 83735; 84100; 85025; 93005; 99284; Q9967

== ENCOUNTER 2023-11-04 09:22 | Emergency (ER) | payer OTHER, SELFPAY ==
[2023-11-04 09:43] VITALS: BP 113/74; PULSE 73; RESP 17; TEMP 36.4; O2SAT 96
--- NOTE | 2023-11-04 11:27 | DI.RAD.S_ITS ---
PROCEDURE: XR ABDOMEN 1V INDICATIONS: consipation issues TECHNIQUE: One view of the abdomen acquired. COMPARISON: None. FINDINGS: Surgical changes and devices: Left femur surgical hardware. Bowel: Bowel gas pattern is normal. Moderate colonic stool load. Soft tissues: No suspicious abdominal calcifications. Visualized solid organ contours appear normal in size. Bones: No suspicious bony lesions. IMPRESSION: No acute abnormality. Moderate colonic stool load. Dictated by: Christiano Gomez M.D. on 11/04/2023 at 12:21 Approved by: Christiano Gomez M.D. on 11/04/2023 at 12:21
--- NOTE | 2023-11-04 12:26 | ED.RECABL ---
HPI - Recheck/Abnormal Lab/Rx General Chief Complaint: Recheck/Abnormal Lab/Rx Stated Complaint: constipation t-5 Time Seen by Provider: 11/04/23 11:50 Source: patient Mode of arrival: Ambulatory History of Present Illness HPI narrative: 73-year-old male with history of constipation, using regimen of oral stool softeners [id number], and suppository, felt increasing abdominal discomfort, felt that he was having trouble with constipation. He has not recall recent problems with bowel obstruction, no surgical interventions recently. No black or red stool. No fevers or chills. Fall, trauma new activities. He denies pain with urination, or trouble with urinating, no frequency of urination. He denies chest pain, cough, shortness of breath. Related Data Home Medications Medication Instructions Recorded Confirmed HOMEOPATHIC SUBSTANCE (MILK 1 cap PO QDAY ##0 04/13/11 THISTLE) folic acid 800 mcg tablet 1 tabs PO QDAY ##0 04/13/11 ibuprofen 800 mg tablet 800 mg PO Q8HP ##0 04/13/11 lorazepam 1 mg tablet (Ativan) 1 mg PO Q8HP ##0 04/13/11 albuterol sulfate 90 mcg/actuation 1 puff INH PRN ##0 08/14/11 aerosol inhaler (Proventil HFA) telmisartan 40 mg tablet (Micardis) 40 mg PO QDAY ##0 08/14/11 Previous Rx's Medication Instructions Recorded tamsulosin 0.4 mg capsule (Flomax) 0.4 mg PO BEDTIME #30 caps 11/02/22 mupirocin 2 % topical ointment 1 applic topical BID #22 grams 11/16/22 cephalexin 500 mg capsule 500 mg PO QID #20 caps 12/26/22 lactulose 20 gram/30 mL oral 20 g (30 mL) PO BID #600 mL 11/04/23 solution Allergies Allergy/AdvReac Type Severity Reaction Status Date / Time bee venom protein (honey bee) Allergy Verified 11/04/23 09:46 Review of Systems Review of Systems Narrative: see HPI Patient History Medical History Neuropathy Social History household members: spouse and family Smoking Status: Former smoker Smoking Status: Former smoker tobacco type: cigarettes alcohol intake frequency: other Substance Use Type: does not use Exam Narrative Exam Narrative: GENERAL: Well-developed patient, in mild distress. HEAD: Atraumatic. Normocephalic. EYES: Pupils equal round and reactive. Extraocular motions intact. No scleral icterus. No injection or drainage. ENT: Nose without bleeding, purulent drainage. Throat without erythema, tonsillar hypertrophy or exudate. Airway patent. NECK: Trachea midline. Non tender CARDIOVASCULAR: Regular rate and rhythm without murmurs, gallops, or rubs. RESPIRATORY: Clear to auscultation. Breath sounds equal bilaterally. No wheezes, rales, or rhonchi. GASTROINTESTINAL: Abdomen soft, non-tender, nondistended. EXTREMITIES: No edema or joint tenderness. BACK: Nontender without deformity or crepitance. No flank tenderness. NEURO: AOx3. Grossly nonfocal motor functions SKIN: No rash or erythema of visible areas Initial Vital Signs Initial Vital Signs: Vital Signs Temperature 97.5 F L 11/04/23 09:43 Pulse Rate 73 11/04/23 09:43 Respiratory Rate 17 11/04/23 09:43 Blood Pressure 113/74 11/04/23 09:43 Pulse Oximetry 96 11/04/23 09:43 Oxygen Delivery Method Room Air 11/04/23 09:43 Course Orders Ordered: ED Orders 11/04/23 11:27 XR abdomen 1V Stat Discontinued Medications Lactulose (Lactulose 20 Gm/30 Ml Solution) 20 gm PO NOW ONE Stop: 11/04/23 12:27 Last Admin: 11/04/23 13:04 Dose: 20 gm Documented By: MLJeanette Sodium Biphosphate/Sodium Phosphate (Fleets Enema) 1 each [place] NOW ONE Stop: 11/04/23 12:27 Last Admin: 11/04/23 13:04 Dose: Not Given Documented By: ZECHARIAH Vital Signs Vital signs: Vital Signs - 8 hr 11/04/23 13:10 Pulse Rate 71 Respiratory Rate 16 Blood Pressure 107/70 Pulse Oximetry 95 Oxygen Delivery Method Room Air MDM - Recheck/Abnormal Lab/Rx Imaging Data Abdominal x-ray: Radiologist's Impression: Close Abdomen X-Ray (Signed) Christiano Gomez - 11/04/23 Launch?[address] [address] XRay Report Signed Patient: Fidencio Pickard MR#: [id number] : 1950 Acct:[id number] Age/Sex: 73 / M Date of Service: 11/04/23 Loc: ED Accession Number: [id number] Procedure: XR abdomen 1V Ordering Provider: Omar Atkins MD PROCEDURE: XR ABDOMEN 1V INDICATIONS: consipation issues TECHNIQUE: One view of the abdomen acquired. COMPARISON: None. FINDINGS: Surgical changes and devices: Left femur surgical hardware. Bowel: Bowel gas pattern is normal. Moderate colonic stool load. Soft tissues: No suspicious abdominal calcifications. Visualized solid organ contours appear normal in size. Bones: No suspicious bony lesions. IMPRESSION: No acute abnormality. Moderate colonic stool load. Dictated by: Christiano Gomez M.D. on 11/04/2023 at 12:21 Approved by: Christiano Gomez M.D. on 11/04/2023 at 12:21 [facility] Narrative Medical decision making narrative: 73-year-old male complains ongoing constipation problems, refractory to his oral laxative [id number] regimen, and home use of enemas, feels that he needs further treatment evaluation. Afebrile, sirs screen negative. Abdomen benign exam. He apparently had results here in the emergency department without any interventions, had numerous stooling, and feels better. Post evacuation x-ray was performed, shows moderate stool burden, no obstructive pattern. Advised continued use of his home regimen, seems to be working some. We will add lactulose, sent to his pharmacy. Discharged, stable, improved. Return precautions discussed Discharge Plan Departure Patient Disposition: Home Clinical Impression: Constipation Instructions: DI for Constipation Activity Restrictions/Additional Instructions: Constipation problems, initially not responsive to your home regimen of oral laxatives and enemas. While in the emergency department before any specific treatment in the emergency department you did have some stooling, and felt some improved symptoms. After the stooling you did have x-ray that shows moderate stool burden in your colon. No obstruction of the bowel pattern. Continue use of your home laxative/enema regimen. You could add prescription lactulose to help with stooling, but hold this if you start to have too much stooling and diarrhea. Lactulose prescription sent to your pharmacy to use if needed. Recheck symptoms with your regular provider in the next couple of days. Return to this/nearest emergency department for any change worsening symptoms or any concerns prior Prescriptions: New lactulose 20 gram/30 mL solution 20 g PO BID Qty: 600 0RF No Action folic acid 0.8 MG tablet 1 tabs PO QDAY Qty: 0 ibuprofen 800 MG tablet 800 mg PO Q8HP Qty: 0 HOMEOPATHIC SUBSTANCE (MILK THISTLE) 1 cap PO QDAY Qty: 0 lorazepam [Ativan] 1 MG tablet 1 mg PO Q8HP Qty: 0 telmisartan [Micardis] 40 MG tablet 40 mg PO QDAY Qty: 0 albuterol sulfate [Proventil HFA] 90 MCG/PUFF HFA aerosol inhaler 1 puff INH PRN Qty: 0 tamsulosin [Flomax] 0.4 mg capsule 0.4 mg PO BEDTIME Qty: 30 0RF mupirocin 2 % ointment 1 applic topical BID Qty: 22 0RF cephalexin 500 mg capsule 500 mg PO QID Qty: 20 0RF Referrals: Miscellaneous,Doctor, MD [Primary Care Provider] - Stand Alone Forms: Patient Portal/API
[2023-11-04] MEDS: LACTULOSE 20 GM/30 ML SOLUTION PO (13:04)
[2023-11-04 13:10] VITALS: BP 107/70; PULSE 71; RESP 16; O2SAT 95
== END 2023-11-04 13:10 | disposition home or self-care (01) ==
PROVIDERS: Emergency Provider Emergency Medicine; Family Provider Physician Assistant
DX: K59.00 Constipation, unspecified (principal)
CPT/HCPCS: 74018; 99282; 99283